=== PATIENT | female | born 1975 | race Caucasian/White ===

== ENCOUNTER 2022-05-31 02:48 | Inpatient (IN) | payer MEDICAID, SELFPAY ==
[2022-05-31 02:48] VITALS: BP 118/81; PULSE 73; RESP 16; TEMP 36.8; O2SAT 99
--- NOTE | 2022-05-31 04:11 | PC.NURSE ---
Pt requested a room change. Pt came to the desk and requested that this automobile service writer examine a face that showed up in my mirror. The mirror was checked and there is a facial outline scratched into the glass. I can't stay in here with a graven image, lisa verde lutheran the LORD thy God alone. Pt was moved from. 128-1 to 126. She is awake, alert, religiously preoccupied.
[2022-05-31 06:00] VITALS: RESP 16
--- NOTE | 2022-05-31 09:33 | PC.NURSE ---
IN ROOM OBSERVED STARRING OUT OF WINDOW FOR EXTENDED LENGTH OF TIME. AROUSES TO VOICE. PT SPOKE WITH THIS NURSE AT LENGTH ABOUT MU-ISM IDEATION. PT STATES SHE CAN NOT TELL ME EVERYTHING BECAUSE, YOU DON'T HAVE THE SONIA. PT STATES GOD TOLD HER SHE IS FROM [place] THE B[place] AND GOD HAS TAKEN HER BACK TO THE OTHER NATIONS TO BE PUNISHED. SHE DOES DENIES SI/HI AND AVH AT THIS TIME, BUT WILL PAUSE STATING SHE IS LISTENING TO GOD, BUT SHE HAS TO WAIT TO RESPOND BECAUSE SHE DOES NOT KNOW IF SHE IS ALLOWED TO TELL YOU EVERYTHING. NOTIFIED PT THAT THIS RN WOULD GET AN ORDER FOR A DIETARY CONSULT DUE TO HER NOT BEING ABLE TO EAT CERTAIN FOODS DUE TO HER RELGIOUS BELIEF.
--- NOTE | 2022-05-31 10:47 | W.PM.NPUH&PS ---
Providers/Chief Complaint Admitting Physician: Rafael Arriaga MD Chief Complaint: SI HPI NPU History of Present Illness Christine Hurst is a 46 year old female who presented to an outside hospital, which reported that she was picked up by the [facility] patrol who dropped her off in a [employer] in [place], [place]. She walked to an auto zone and reportedly climbed one mountain then another mountain. She had seen a [employer] and went there to get water where she noticed her urine was dark. At the top of the second mountain, she met a man and asked him to call 911 because she was dehydrated. She reports the spirit leads her in the direction she needs to go. She believes she is going through the wrath of God and stated she has left her old life behind because it ?has perished?. She said things like she drank a cup of wrath to kill her out, that her father was a silvina and she was being judged because of him and that her was not holy. She stated that her family are her enemies and she does not associate with them because they are only holy on holidays and she could not bring them to her because she has . They evaluated her and put her on a 96 hour hold and she was transferred to [facility] and admitted to the neuropsychiatric unit for definitive treatment of those issues. She presents today reporting she is not currently on any medications. She had presented to the outside hospital where she was severely dehydrated and was being admitted for observation but they later came to get her belongs at which point she found out she was in a gown that indicated she was a harm to herself or others. She reports she did not understand why she had been put into the gown and endorsed everything was ?in God?s testimony? in regards to questions of how she presented. She reports that ?god called the old person that she was? in reference to herself in third person and when asked why she was referring to herself in third person, she stated ?we have to stay in god?s testimony?. She endorses god is coming to her now and she has to wait for him to give the words to this policy writer sales. She has been psychiatrically hospitalized once previously a year ago in [place] and was told by the police magistrate then it was due to her financial issues. She has never had outpatient services and endorsed once again that her journey has been prophesized in the bible. She had reports that prior to being taken the outside hospital she had expressed wanting to go to a [facility]ikh hospital as she was a part of that jehovah's witness group. She reported that she has not been on medications in this lifetime but also was endorsing that the wrath of god can give someone another lifetime to live. She denies tobacco, alcohol, marijuana or any other illicit drug use. She has never had drug and alcohol treatment or drug and alcohol charges. She reports she has been experiencing heightened spirituality for 8 to 9 years at this point and has been speaking with god directly and endorses while she is waiting for him to speak with her, she is battling Minerva who talks to her as well which is why she pauses throughout the interview. She endorses feeling pressured into the secular world. She reports that due to her life perishing in ath she does not have her history anymore and elaborated that her life is like the second book of [employer] and that ?her friends and family were against her as she was against god?. She reports she is being lead out of [facility] to the [email or web address] and that no one know her besides god. Psychiatric History: As above. Substance Abuse History: As above. Family History: She refused to answer questions that relate to her family or her personal history prior to being called by god as she endorses her old life is gone. Developmental History: She refused to answer questions that relate to her family or her personal history prior to being called by god as she endorses her old life is gone. Psychosocial History: She refused to answer questions that relate to her family or her personal history prior to being called by god as she endorses her old life is gone. She did report having been previously. Legal History: She refused to answer questions that relate to her family or her personal history prior to being called by god as she endorses her old life is gone. Medical History: She is allergic to penicillin and possibly other medications she could not recall. Meds NPU Home Medications Medication Instructions Recorded Confirmed Last Taken Type No Known Home Medications 05/31/22 05/31/22 Unknown History Allergies Allergy/AdvReac Type Severity Reaction Status Date / Time doxycycline Allergy Unknown Verified 05/31/22 02:53 erythromycin base Allergy Unknown Verified 05/31/22 02:53 Penicillins Allergy ALGY-Anaphy Verified 05/31/22 02:53 laxis sulfamethoxazole Allergy Unknown Verified 05/31/22 02:53 [From Bactrim] trimethoprim [From Bactrim] Allergy Unknown Verified 05/31/22 02:53 Mental Status Exam MSE Comments: This is a slender white female looking older than her stated age in [facility] scrubs with adequate grooming and eye contact. No abnormal movements except for mild psychomotor retardation plus times she was looking to the left or right clearly attending to internal stimuli. Mostly cooperative with exam in mild distress. Speech was slightly decreased rate and volume with frequent pauses before answers. Mood described as blessed, affect is restricted and slightly agitated. Thought process, somewhat organized. Thought content: patient denies suicidal or homicidal ideation, no delusions reported but clear hyper jehovah's witness delusions noted, and she at times was clearly speaking and responding to people who were not there and internal stimuli. Attention and concentration are intact and memory appeared unreliable though none were formally tested. She is alert and oriented three times. Insight and judgment are impaired. Impulse control is limited. Vitals/I&O/Wt Last Vital Signs Temp 98.3 F 05/31/22 02:48 Pulse 73 05/31/22 02:48 Resp 16 05/31/22 06:00 BP 118/81 05/31/22 02:48 Pulse Ox 99 05/31/22 02:48 O2 Del Method 05/31/22 02:49 Weight last 48 hrs Weight 54.658 kg A&P Assessment and plan (1) Psychosis: Status: Acute Plan This is a 44 year old white woman with active hyper jehovah's witness delusions who presents on a 96 hour hold after walking to the point of severe dehydration endorsing she has been called by god and that her old life is because she has chosen to follow god and reporting delusions for the past 8 to 9 years. 1. We will get collateral information including possibly patient?s family members. 2. Encourage individual, group and milieu therapy 3. Continue q-15 minute check for safety 4. Consider 96 hour hold. Involuntary Hold Information 96 Hour Hold: 96 Hour Involuntary Admission: Yes 96 Hour Hold Ending Date: 06/06/22 96 Hour Hold Ending Time: 02:25 Attestations NPU Medical Necessity Statement*: Inpatient hospitalization is medically necessary and the clinically appropriate intervention at this time. We will monitor medications and make changes as indicated. Patient will be in the hospital for over two midnights. Likely length of stay is three to five days. Coding Level of Care Code Acute Manager People for Justen Reyes Diagnoses Psychosis F29
[2022-05-31 14:00] VITALS: BP 113/78; PULSE 99; RESP 18; TEMP 36.8; O2SAT 98
[2022-05-31] MEDS: efferdent effervescent 1 EACH DENTAL (16:39)
[2022-05-31] MEDS: fixodent 39 gm Tube 1 APPLIC DENTAL (16:39)
[2022-05-31 20:37] VITALS: BP 106/73; PULSE 66; RESP 18; TEMP 36.8; O2SAT 100
--- NOTE | 2022-05-31 23:03 | NUR.SHIFT ---
2000-PT PRESENTS CALM AND COOPERATIVE. WHEN CALLED GORDO, PT STATED, HER LIFE WAS SEIZED AWAY. SHE'S NOT HERE ANYMORE. WRATH OF GOD KILLED HER. PT REPORTS HEARING BOTH SATAN AND GOD USE HER IN THEIR HOLY WAR PT REPORTS, I AM PART OF GOD'S TESTIMONY PT REPORTS I AM PART OF THE HOLY WAR AND RIGHT NOW GOD IS PUNISHING ME, BUT I WILL AGAIN BE IN HIS FAVOR. PT DENIES SI/HI PT REPORTS AH, BUT NOT VH BUT IS OBVIOUSLY RESPONDING TO INTERNAL STIMULI. PT REPORTS, GOD WILL NOT LIKE IT IF I TAKE MEDICATION BECAUSE IF HE WANTS ME HEALED IN ANY WAY, HE WILL HEAL ME. PT DID EAT A SNACK AND DRANK SOME FLUIDS. 0000- PT SITTING IN BED WITH HAIR HANGING OVER FACE STARING AT THE AIR NEXT TO HER IF WATCHING SOMEONE.
[2022-06-01 05:55] VITALS: BP 96/66; PULSE 80; RESP 16; TEMP 36.6; O2SAT 98
--- NOTE | 2022-06-01 10:34 | PC.NURSE ---
PT IN ROOM, AROUSES TO VOICE. CONTINUES TO BE FIXATED ON LABELS ON DRINKS AND FOOD, STATING THEY ARE IDOLS AND SHE CAN NOT CONGREGATION OTHER IDOLS. PT REQUEST LABELS TO BE REMOVED THEN SHE WILL EAT OR DRINK. APPEARS TO BE RESPONDING TO INTERNAL AND EXTERNAL STIMULI. PT WILL PAUSE LOOK TO THE SIDE AND STATE SHE HAS RECEIVED HER ANSWER FROM EITHER GOD OR SATAN . PT DENIES SI/HI AND AVH AT THIS TIME. DENIES PAIN. PT WILL STATE SHE IS UNDER GODS WRATH AND GORDO IS ACTUALLY . PT SPEAKS ABOUT HERSELF IN THE 3RD PERSON DURING CONVERSATIONS. ALL QUESTIONS ANSWERED AND SUPPORT VOICED,.
[2022-06-01 14:00] VITALS: BP 103/71; PULSE 71; TEMP 36.8; O2SAT 98
--- NOTE | 2022-06-01 16:14 | PC.NURSE ---
NEW ORDERS PT C/O SORE THROAT. NEW ORDERS RECEIVED FOR CHLORASEPTIC SPRAY 3 SPRAYS Q 2 HOURS PRN ORDERS PLACED. NOTIFIED PT. EDUCATION COMPLETED. VERBALIZED UNDERSTANDING.
--- NOTE | 2022-06-01 16:47 | P.NPUPN_ITS ---
Subjective NPU Subjective: Patient presents today unchanged. Still with Palmer intrusive hyperreligious focus. Anything she is questioned about that there is a lack of clarity she says to ask God. She was frustrated with this job specification writer's concern for her mental health and so she said that she wanted a different doctor. Pausing to listen to God's position she suggested to God told her to be cautious because she sees a demon around this job specification writer. She continue to query about ways to dismiss this Dr. Reporting that God always provides a way. Mental Status Exam MSE Comments: This is a slender white female looking older than her stated age in [facility] scrubs with adequate grooming and eye contact. No abnormal movements except for mild psychomotor retardation plus times she was looking to the left or right clearly attending to internal stimuli. Mostly cooperative with exam in mild distress. Speech was slightly decreased rate and volume with frequent pauses before answers. Mood described as blessed, affect is restricted and slightly agitated. Thought process, somewhat organized. Thought content: patient denies suicidal or homicidal ideation, no delusions reported but clear hyper episcopalian delusions noted, and she at times was clearly speaking and responding to people who were not there and internal stimuli. Attention and concentration are intact and memory appeared unreliable though none were formally tested. She is alert and oriented three times. Insight and judgment are impaired. Impulse control is limited. Vitals/I&O/Wt Last Vital Signs Temp 97.6 F 06/01/22 19:58 Pulse 92 06/01/22 19:58 Resp 16 06/01/22 19:58 BP 100/66 06/01/22 19:58 Pulse Ox 97 06/01/22 19:58 O2 Del Method 06/01/22 14:00 A&P Assessment and plan (1) Psychosis: Status: Acute Plan This is a 44 year old white woman with active hyper episcopalian delusions who presents on a 96 hour hold after walking to the point of severe dehydration endorsing she has been called by god and that her old life is because she has chosen to follow god and reporting delusions for the past 8 to 9 years. 1. We will get collateral information including possibly patient?s family members. 2. Encourage individual, group and milieu therapy 3. Continue q-15 minute check for safety 4. Patient on 96-hour hold will plan on 21-day hold on Saturday. Involuntary Hold Information 96 Hour Hold: 96 Hour Involuntary Admission: Yes 96 Hour Hold Ending Date: 06/06/22 96 Hour Hold Ending Time: 02:25 Attestations NPU Medical Necessity Statement*: Inpatient hospitalization is medically necessary and the clinically appropriate intervention at this time. We will monitor medications and make changes as indicated. Likely length of stay is 7-10 days. We will initiate 21-day hold on Saturday. Coding Level of Care Code Acute [place] Operator for Justen Reyes Diagnoses Psychosis F29
[2022-06-01 19:58] VITALS: BP 100/66; PULSE 92; RESP 16; TEMP 36.4; O2SAT 97
[2022-06-02 06:00] VITALS: BP 98/61; PULSE 80; RESP 16; TEMP 36.5; O2SAT 96
--- NOTE | 2022-06-02 11:03 | PC.NURSE ---
PT IS SELF ISOLATING TO ROOM, PT STATES TODAY IS HER SABBATH AND STATES I DONT WANT CARES OR TO SPEAK TO ANYONE , PT IS CALM, PT ALSO IS FASTING AND REFUSING FOOD. PT REFUSES TO TALK AND IS SITTING QUIETLY IN ROOM
--- NOTE | 2022-06-02 13:48 | W.PM.NPUPNS ---
Subjective NPU Subjective: Patient presents today continuing to be overly religiously preoccupied. She reported that she was not going to engage in any treatment today because of the . 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 We then discussed the 21-day hold process and the fact that the treatment team strongly believes that a mood stabilizer/antipsychotic is going to be necessary to help her condition and that she will have an opportunity early next week to talk to a document restorer about her position that she does not need treatment. Mental Status Exam MSE Comments: This is a slender white female looking older than her stated age in [facility] scrubs with adequate grooming and eye contact. No abnormal movements except for mild psychomotor retardation plus times she was looking to the left or right clearly attending to internal stimuli. Mostly cooperative with exam in mild distress. Speech was slightly decreased rate and volume with frequent pauses before answers. Mood described as not participating because of the Sabba, affect is restricted and slightly agitated. Thought process, somewhat organized. Thought content: patient denies suicidal or homicidal ideation, no delusions reported but clear hyper methodist delusions noted, and she at times was clearly speaking and responding to people who were not there and internal stimuli. Attention and concentration are intact and memory appeared unreliable though none were formally tested. She is alert and oriented to person and place. Insight and judgment are impaired. Impulse control is limited. Vitals/I&O/Wt Last Vital Signs Temp 97.7 F 06/02/22 06:00 Pulse 80 06/02/22 06:00 Resp 16 06/02/22 06:00 BP 98/61 06/02/22 06:00 Pulse Ox 96 06/02/22 06:00 O2 Del Method 06/01/22 14:00 A&P Assessment and plan (1) Psychosis: Status: Acute Plan This is a 44 year old white woman with active hyper methodist delusions who presents on a 96 hour hold after walking to the point of severe dehydration endorsing she has been called by god and that her old life is because she has chosen to follow god and reporting delusions for the past 8 to 9 years. 1. We will get collateral information including possibly patient?s family members. We will continue to offer antipsychotic. 2. Encourage individual, group and milieu therapy 3. Continue q-15 minute check for safety 4. Patient on 96-hour hold will plan on 21-day hold on Saturday. Involuntary Hold Information 96 Hour Hold: 96 Hour Involuntary Admission: Yes 96 Hour Hold Ending Date: 06/06/22 96 Hour Hold Ending Time: 02:25 Attestations NPU Medical Necessity Statement*: Inpatient hospitalization is medically necessary and the clinically appropriate intervention at this time. We will monitor medications and make changes as indicated. Likely length of stay is 7-10 days. We will initiate 21-day hold on Saturday. Coding Level of Care Code Acute Insurance Counselor for Justen Fwd Diagnoses Psychosis F29
[2022-06-02 15:14] VITALS: RESP 16
--- NOTE | 2022-06-02 20:24 | PC.NURSE ---
2000 Refused VS, I am on my saboth, the doctor knows.
--- NOTE | 2022-06-02 21:01 | PC.NURSE ---
PT ISOLATES TO ROOM. REQUEST THIS NURSE COME BACK AND DO MY ASSESSMENT LATER, PREFERABLY AFTER MIDNIGHT. CONTINUES TO BE PREOCCUPIED WITH MANDAEISM IDEATION. VERY EVASIVE, BLOCKING WHEN ASKED QUESTIONS. DENIES SI/HI AND AVH. SUPPORT VOICED.
[2022-06-02 22:00] VITALS: BP 98/61; PULSE 80; RESP 16; TEMP 36.5; O2SAT 96
[2022-06-03 05:55] VITALS: BP 87/59; PULSE 120; RESP 16; TEMP 36.6; O2SAT 96
[2022-06-03 09:59] LABS: Add Urine Microscopic? NO; Charge for UA Resulting for Rev
[2022-06-03 10:08] LABS: Urine Appearance Clear (CLEAR); Urine Color Yellow (Yellow); pH Urine 6 (5-7)
[2022-06-03 10:10] LABS: Bilirubin Urine Neg (Negative); Blood Urine Neg (Negative); Glucose Urine UA Norm (Normal); Ketones Urine Negative (Negative); Leukocyte Esterase Urine Negative (Negative); Nitrate Urine Negative (Negative); Protein Urine Neg (Negative); Urobilinogen Urine 1 mg/dL (Negative)
[2022-06-03 14:00] VITALS: BP 97/67; PULSE 107; RESP 16; TEMP 36.6; O2SAT 98
[2022-06-03] MEDS: efferdent effervescent 1 EACH DENTAL (18:06)
--- NOTE | 2022-06-03 19:21 | P.NPUPN_ITS ---
Subjective NPU Subjective: Patient presents today reporting that she is still trying to understand how she can get a new doctor. We discussed the fact that her most potent means to protect her similarities is when she has a court date but that while she is on a 96-hour hold she is court ordered to be evaluated. She co ntinued to be religiously preoccupied as she described that she received life back from when she perished. And reporting that she was feeling better because she received light from God. Mental Status Exam MSE Comments: This is a slender white female looking older than her stated age in [facility] scrubs with adequate grooming and eye contact. No abnormal movements except for mild psychomotor retardation plus times she was looking to the left or right clearly attending to internal stimuli. Mostly cooperative with exam in mild to moderate distress. Speech was slightly decreased rate and volume with frequent pauses before answers. Mood described as I want a new doctor, affect is restricted and slightly agitated. Thought process, somewhat organized. Thought content: patient denies suicidal or homicidal ideation, no delusions reported but clear hyper oriental orthodox delusions noted, and she at times was clearly speaking and responding to people who were not there and internal stimuli. Attention and concentration are intact and memory appeared unreliable though none were formally tested. She is alert and oriented to person and place. Insight and judgment are impaired. Impulse control is limited. Vitals/I&O/Wt Last Vital Signs Temp 98.4 F 06/03/22 20:14 Pulse 83 06/03/22 20:14 Resp 17 06/03/22 20:14 BP 91/60 06/03/22 20:14 Pulse Ox 93 06/03/22 20:14 O2 Del Method 06/03/22 14:00 Weight last 48 hrs Weight 54.658 kg A&P Assessment and plan (1) Psychosis: Status: Acute Plan This is a 44 year old white woman with active hyper oriental orthodox delusions who presents on a 96 hour hold after walking to the point of severe dehydration endorsing she has been called by god and that her old life is because she has chosen to follow god and reporting delusions for the past 8 to 9 years. 1. We will get collateral information including possibly patient?s family mem bers. We will continue to offer antipsychotic, but she refuses. 2. Encourage individual, group and milieu therapy 3. Continue q-15 minute check for safety 4. Patient on 96-hour hold will plan on 21-day hold on Saturday. Involuntary Hold Information 96 Hour Hold: 96 Hour Involuntary Admission: Yes 96 Hour Hold Ending Date: 06/06/22 96 Hour Hold Ending Time: 02:25 Attestations NPU Medical Necessity Statement*: Inpatient hospitalization is medically necessary and the clinically appropriate intervention at this time. We will monitor medic ations and make changes as indicated. Likely length of stay is 7-10 days. We will initiate 21-day hold on Saturday. Coding Level of Care Code Acute Disk Sander for Justen Fwd Diagnoses Psychosis F29
[2022-06-03 20:14] VITALS: BP 91/60; PULSE 83; RESP 17; TEMP 36.9; O2SAT 93
[2022-06-04 06:00] VITALS: BP 85/52; PULSE 98; RESP 16; TEMP 36.9; O2SAT 99
--- NOTE | 2022-06-04 07:02 | W.PM.NPUPNS ---
Subjective NPU Subjective: Patient presents today continuing to be hyperreligious per reports and per evaluation. She continues to be surprised by the prospect that we feel she needs medication and is not seeming to be excited about the idea of having a court date to complete her case. We continue to discuss 21-day hold process and that the forms are filed today so that we expect the court date in the next 48 hours or so. Mental Status Exam MSE Comments: This is a slender white female looking older than her stated age in [facility] scrubs with adequate grooming and eye contact. No abnormal movements except for mild psychomotor retardation plus times she was looking to the left or right clearly attending to internal stimuli. Mostly cooperative with exam in mild to moderate distress. Speech was slightly decreased rate and volume with frequent pauses before answers. Mood described as I am fine, affect is restricted and slightly agitated. Thought process, somewhat organized. Thought content: patient denies suicidal or homicidal ideation, no delusions reported but clear hyper caodaism delusions noted, and she at times was clearly speaking and responding to people who were not there and internal stimuli. Attention and concentration are intact and memory appeared unreliable though none were formally tested. She is alert and oriented to person and place. Insight and judgment are impaired. Impulse control is limited. Vitals/I&O/Wt Last Vital Signs Temp 98.4 F 06/04/22 06:00 Pulse 98 06/04/22 06:00 Resp 16 06/04/22 06:00 BP 85/52 06/04/22 06:00 Pulse Ox 99 06/04/22 06:00 O2 Del Method 06/04/22 06:00 Weight last 48 hrs Weight 54.658 kg A&P Assessment and plan (1) Psychosis: Status: Acute Plan This is a 44 year old white woman with active hyper caodaism delusions who presents on a 96 hour hold after walking to the point of severe dehydration endorsing she has been called by god and that her old life is because she has chosen to follow god and reporting delusions for the past 8 to 9 years. 1. We will get collateral information including possibly patient?s family members. We will continue to offer antipsychotic, but she refuses. 2. Encourage individual, group and milieu therapy 3. Continue q-15 minute check for safety 4. Patient on 96-hour hold will plan on 21-day hold on Saturday. Involuntary Hold Information 96 Hour Hold: 96 Hour Involuntary Admission: Yes 96 Hour Hold Ending Date: 06/06/22 96 Hour Hold Ending Time: 02:25 Attestations NPU Medical Necessity Statement*: Inpatient hospitalization is medically necessary and the clinically appropriate intervention at this time. We will monitor medications and make changes as indicated. Likely length of stay is 7-10 days. We will initiate 21-day hold on Saturday. Coding Level of Care Code Acute Vice President Of Communications for Justen Reyes Diagnoses Psychosis F29
[2022-06-04 14:00] VITALS: BP 88/60; PULSE 87; RESP 16; TEMP 36.8; O2SAT 98
[2022-06-04 19:10] VITALS: BP 104/70; PULSE 100; RESP 16; TEMP 36.9; O2SAT 98
[2022-06-05 06:00] VITALS: BP 95/58; PULSE 79; RESP 18; TEMP 36.6; O2SAT 98
--- NOTE | 2022-06-05 11:08 | P.NPUPN_ITS ---
Subjective NPU Subjective: Patient presented today reporting she is refusing/denying medical treatment/services today. Asked why she reports that God informed us of the reasoning for it was identified in the chart. She answered okay to a couple introductory questions but after that she just kept saying I refuse medical treatment. Mental Status Exam MSE Comments: This is a slender white female looking older than her stated age in [facility] scrubs with adequate grooming and eye contact. No abnormal movements except for mild psychomotor agitation. Uncooperative with exam in mild to moderate distress. Speech was slightly decreased rate and volume. Mood described as I deny medical treatment, affect is slightly agitated. Thought process, somewhat organized. Thought content: patient only responded that she denied medical treatment and that documented to us and did not answer questions about the or perceptual disturbances. There was no aggression outwardly or inwardly directed noted, there were no delusions reported but clear hyperreligious delusions existed. She did not report any auditory visual hallucinations and was not appearing to attend internal stimuli during our encounter. Attention and concentration are intact and memory appeared unreliable though none were formally tested. She is alert and oriented to person and place. Insight and judgment are impaired. Impulse control is limited. Vitals/I&O/Wt Last Vital Signs Temp 97.8 F 06/05/22 06:00 Pulse 79 06/05/22 06:00 Resp 18 06/05/22 06:00 BP 95/58 06/05/22 06:00 Pulse Ox 98 06/05/22 06:00 O2 Del Method 06/05/22 06:00 A&P Assessment and plan (1) Psychosis: Status: Acute Plan This is a 44 year old white woman with active hyper church delusions who presents on a 96 hour hold after walking to the point of severe dehydration endorsing she has been called by god and that her old life is because she has chosen to follow god and reporting delusions for the past 8 to 9 years. 1. We will get collateral information including possibly patient?s family members. We will continue to offer antipsychotic, but she refuses. 2. Encourage individual, group and milieu therapy 3. Continue q-15 minute check for safety 4. Patient on 96-hour. 21-day hold paperwork filed. Involuntary Hold Information 96 Hour Hold: 96 Hour Involuntary Admission: Yes 96 Hour Hold Ending Date: 06/06/22 96 Hour Hold Ending Time: 02:25 Attestations NPU Medical Necessity Statement*: Inpatient hospitalization is medically necessary and the clinically appropriate intervention at this time. We will monitor medications and make changes as indicated. Likely length of stay is 7-10 days. Coding Level of Care Code Acute Hydraulic Riveter for Justen Fwd Diagnoses Psychosis F29
[2022-06-05 13:39] VITALS: RESP 16
[2022-06-05 20:06] VITALS: RESP 16
[2022-06-06 06:00] VITALS: RESP 18
--- NOTE | 2022-06-06 06:45 | PC.NURSE ---
Patient continues to refuse anything to eat or drink. patient refusing to answer any medical question when asked if she has urinated anytime during the night. states that god has told her not to eat or drink.
--- NOTE | 2022-06-06 06:46 | PC.NURSE ---
Patient refused all nursing care.
--- NOTE | 2022-06-06 09:15 | PC.NURSE ---
PT IN ROOM, ISOLATING AND WITHDRAWING FROM PEERS. WHEN THIS RN INTRODUCED SELF PT CONTINUELY REPEATED I REFUSE MEDICAL I REFUSE MEDICAL I REFUSE MEDICAL. INFORMED PT I WAS ONLY INTRODUCING MYSELF. PT DID DENY SI/HI AND AVH AT THIS TIME, THEN STARTED SPEAKING ABOUT GOD, RATH AND SATAN. PT WAS RESPONDING TO INTERNAL STIMULI, LOOKING TO THE RIGHT OF HER SAYING I REBUKE THAT. THEN STARTED TALKING TO THIS NURSE, STATING GOD GAVE ME PERMISSION TO TALK TO YOU AND TELL YOU HIS TESTIMONY, OTHERWISE I WOULD NOT BE ABLE TO SPEAK TO YOU, LIKE THE DR. I CAN'T TALK TO HIM BECAUSE HE IS A DOG AND DOGS ARE NOT ALLOWED IN THE KINGDOM OF GOD. PT WENT ON RESPONDING TO INTERNAL AND EXTERNAL STIMULI DURING THE CONVERSATION. CONTINUED WITH HER FAITH IDEATION. ALL QUESTIONS WERE ANSWERED AND SUPPORT VOICED.
[2022-06-06 14:00] VITALS: RESP 16
--- NOTE | 2022-06-06 16:05 | W.PM.NPUPNS ---
Subjective NPU Subjective: Patient presents today continuing to struggle with hyperreligious thinking. We discussed the fact that her hearing was tomorrow to which she had no real response. She continues to report that she does not want to have any medical services and even talked about not eating and protest. Encouraged to continue to take care of her needs and to use the legal route of going to court and explained to the shrinking machine operator why she believes she should not be here on a hold. We continue to offer her medications which she refused and talked about her being chosen and not having any problems. Mental Status Exam MSE Comments: This is a slender white female looking older than her stated age in [facility] scrubs with adequate grooming and eye contact. No abnormal movements except for mild psychomotor agitation. Uncooperative with exam in mild to moderate distress. Speech was slightly decreased rate and volume. Mood described as I deny medical treatment, affect is slightly agitated. Thought process, somewhat organized. Thought content: patient only responded that she denied medical treatment and that is documented to you by God and did not answer questions about the lethality or perceptual disturbances. There was no aggression outwardly or inwardly directed noted, there were no delusions reported but clear hyperreligious delusions existed. She did not report any auditory or visual hallucinations and was not appearing to attend internal stimuli during our encounter. Attention and concentration are intact and memory appeared unreliable though none were formally tested. She is alert and oriented to person and place. Insight and judgment are impaired. Impulse control is limited. Vitals/I&O/Wt Last Vital Signs Temp 97.8 F 06/05/22 06:00 Pulse 79 06/05/22 06:00 Resp 16 06/06/22 14:00 BP 95/58 06/05/22 06:00 Pulse Ox 98 06/05/22 06:00 O2 Del Method 06/05/22 06:00 A&P Assessment and plan (1) Psychosis: Status: Acute Plan This is a 44 year old white woman with active hyper confucianism delusions who presents on a 96 hour hold after walking to the point of severe dehydration endorsing she has been called by god and that her old life is because she has chosen to follow god and reporting delusions for the past 8 to 9 years. 1. We will get collateral information including possibly patient?s family members. We will continue to offer antipsychotic, but she refuses. 2. Encourage individual, group and milieu therapy 3. Continue q-15 minute check for safety 4. Patient on 96-hour. 21-day hold hearing tomorrow. Involuntary Hold Information 96 Hour Hold: 96 Hour Involuntary Admission: Yes 96 Hour Hold Ending Date: 06/06/22 96 Hour Hold Ending Time: 02:25 Attestations NPU Medical Necessity Statement*: Inpatient hospitalization is medically necessary and the clinically appropriate intervention at this time. We will monitor medications and make changes as indicated. Likely length of stay is 7-10 days. Could be longer with 21-day hold hearing tomorrow. Coding Level of Care Code Acute Serologist for Loryg Fwd Diagnoses Psychosis F29
--- NOTE | 2022-06-06 17:34 | PC.NURSE ---
PT HAS REFUSED TO EAT AND DRINK ALL SHIFT. AT LUNCH PT THREW TRAY ON THE FLOOR. PT STATES THE SPIRIT SAID SHE COULD EAT, AND PT WAS EXCITED TO EAT. ONCE PT WENT INTO ROOM TO EAT, THE SPIRIT THEN TOLD HER SHE COULD NOT EAT. PT THEN GOT UPSET BECAUSE IT WAS HER FAVORITE MEAL AND THE SPIRIT SAID I COULD'NT EAT IT ANYMORE. PT THEN STATED I WISH I COULD EAT BUT THE SPIRIT JUST WON'T LET ME. WHEN DINNER CAME MULTIPLE STAFF WENT IN TO ENCOURAGE PT TO EAT, BUT PT CONTINUES TO DECLINE FOOD OR DRINK AT THIS TIME. [address] DATE IS SET FOR TOMORROW.
[2022-06-07 05:46] VITALS: RESP 16
--- NOTE | 2022-06-07 08:56 | PC.NURSE ---
PRESENTS IN ROOM SITTING IN FLOOR, ISOLATES FROM STAFF AND PEERS. CONTINUES TO DENY MEDICAL PT DID SPEAK TO THIS RN IN DEPTH ABOUT HER RELIGOUS IDEATION IN DEPTH, STATING GOD WILL LET ME TALK TO YOU BUT I CAN NOT SPEAK TO THE OTHER PEOPLE HERE BECAUSE THEY ARE SOURCERERS AND FROM THE OCCULT. PT DID DENY SI/HI AND AVH AT THIS TIME. PT WAS HYPER FOCUSED ON DR. LIZARRAGA AND THAT HE IS SATAN AND I CAN SEE THE DEVIL IN HIM, HE IS UNDER WRATH AND HE GOING TO GET WHAT HE GETS FOR IMPRISONING ME. PT CONTINUED TO SPEAK ABOUT SIKH AND THE BIBLE, THAT SHE IS HOLY AND HAS THE HOLY SPIRIT. ALL QUESTIONS ANSWERED AND SUPPORT VOICED
--- NOTE | 2022-06-07 12:51 | PC.NURSE ---
OFF UNIT FOR [address]
[2022-06-07 14:00] VITALS: RESP 16
--- NOTE | 2022-06-07 18:03 | P.NPUPN_ITS ---
Subjective NPU Subjective: Patient presents today reporting that she does not want to be treated by this real estate underwriter. Make sense as during her court proceedings she asked the weigher production why he was returning her to a doctor who read the hillary of the beast. We discussed the fact that now that she is on a hold that we will initiate Invega 6 mg p.o. every morning and there will be Geodon IM for p.o. refusal. She endorses a plan to appeal the courts findings. Explained that we want this to be as reasonable as possible but her level of psychosis is not healthy for her brain so we would like to help her resolve that but obviously she does not feel she has any psychiatric problems. Mental Status Exam MSE Comments: This is a slender white female looking older than her stated age in [facility] scrubs with adequate grooming and eye contact. No abnormal movements except for mild psychomotor agitation. Uncooperative with exam in mild to moderate distress. Speech was slightly decreased rate and volume. Mood described as I can refuse treatment, affect is slightly agitated. Thought process, somewhat organized. Thought content: patient only responded that God told me I can refuse treatment, but not to fight you. And did not answer questions about the lethality or perceptual disturbances. There was no aggression outwardly or inwardly directed noted, there were no delusions reported but clear hyperreligious delusions existed. She did not report any auditory or visual hallucinations and was not appearing to attend internal stimuli during our encounter. Attention and concentration are intact and memory appeared unreliable though none were formally tested. She is alert and oriented to person and place. Insight and judgment are impaired. Impulse control is limited. Vitals/I&O/Wt Last Vital Signs Temp 97.8 F 06/05/22 06:00 Pulse 79 06/05/22 06:00 Resp 16 06/07/22 19:44 BP 95/58 06/05/22 06:00 Pulse Ox 98 06/05/22 06:00 O2 Del Method 06/05/22 06:00 A&P Assessment and plan (1) Psychosis: Status: Acute Plan This is a 44 year old white woman with active hyper restoration delusions who presents on a 96 hour hold after walking to the point of severe dehydration endorsing she has been called by god and that her old life is because she has chosen to follow god and reporting delusions for the past 8 to 9 years. 1. We will get collateral information including possibly patient?s family members. Initiated Invega 6 mg p.o. every morning. Currently Geodon 20 mg IM for p.o. refusal. Hope is to get tolerance for Invega establish so that we could transfer her over to Invega Sustenna. 2. Encourage individual, group and milieu therapy 3. Continue q-15 minute check for safety 4. Patient placed on 21-day hold. Involuntary Hold Information 96 Hour Hold: 96 Hour Involuntary Admission: Yes 96 Hour Hold Ending Date: 06/06/22 96 Hour Hold Ending Time: 02:25 Attestations NPU Medical Necessity Statement*: Inpatient hospitalization is medically necessary and the clinically appropriate intervention at this time. We will monitor medications and make changes as indicated. Likely length of stay is 10 to 14 days. She is on the 21-day hold. Coding Level of Care Code Acute Basket Hand Weaver for Justen Reyes Diagnoses Psychosis F29
[2022-06-07] MEDS: ziprasidone 20 mg/mL SDV IM (18:04)
--- NOTE | 2022-06-07 18:04 | PC.NURSE ---
refused scheduled Invega, PRN Geodon 20 mg given IM in right deltoid per physician request....security called to unit, zinc furnace charger and this med nurse and 2 CNAs in room to assist with med administration. pt took med without incidence, but did say I am refusing this shot! once shot given, staff leaving the room & pt stated I forgive you all
[2022-06-07 19:44] VITALS: RESP 16
--- NOTE | 2022-06-08 09:14 | PC.NURSE ---
IN ROOM PACING AND PRAYING. DENIES PAIN. DENIES SI/HI AND AVH AT THIS TIME. PT CONTINUES TO RESPOND TO INTERNAL AND EXTERNAL STIMULI STATING GOD SPOKE TO HER AND GOD IS COMING FOR YOU SOON, I JUST HOPE YOU DON'T . PT ALSO LOOKS TO THE RIGHT AND RESPONDS TO THE HOLY SPIRIT VERBALLY. ENCOURAGED PT TO TAKE AM MEDS. PT STATES NO I MUST REFUSE THE SONIA OF THE BEAST. EDUCATED PT STAFF WOULD HAVE TO GIVE HER AN INJECTION IF SHE WILL NOT TAKE THE MEDICATION. PT STATES THAT'S FINE, BUT I STILL REFUSE IT AND GOD WILL ABSORB IT FOR ME. ALL QUESTIONS ANSWERED AND SUPPORT VOICED. PT DOES CONTINUE TO DECLINE PHYSICAL ASSESSMENT.
--- NOTE | 2022-06-08 10:36 | PC.NURSE ---
Pt refused 6mg po invega, pt stated that she will not partake in the hillary of the beast. Nurse encouraged pt to take the oral medication, pt still denied.
--- NOTE | 2022-06-08 11:14 | W.PM.NPUPNS ---
Subjective NPU Subjective: Patient presents today continuing to struggle with the situation. She continues to report that this typewriter ribbon winder has the hillary of the beast and continues to refuse medication but is taking the injection without any restraints necessary she continues to deny need for medication or need for any assistance. Staff continue to report regular psychotic comments. But she is refusing conversation continuing to state that she denies care or refuses care. Mental Status Exam MSE Comments: This is a slender white female looking older than her stated age in [facility] scrubs with adequate grooming and eye contact. No abnormal movements except for mild psychomotor agitation. Uncooperative with exam in mild to moderate distress. Speech was normal rate and decreased volume. Mood described as I denied treatment/therapeutic, affect is slightly agitated. Thought process, somewhat organized. Thought content: patient only responded that I denied treatment and refused treatment and did not answer questions about the lethality or perceptual disturbances. There was no aggression outwardly or inwardly directed noted, there were no delusions reported but clear hyperreligious delusions existed. She did not report any auditory or visual hallucinations and was not appearing to attend internal stimuli during our encounter. Attention and concentration are intact and memory appeared unreliable though none were formally tested. She is alert and oriented to person and place. Insight and judgment are impaired. Impulse control is limited. Vitals/I&O/Wt Last Vital Signs Temp 97.8 F 06/05/22 06:00 Pulse 79 06/05/22 06:00 Resp 16 06/07/22 19:44 BP 95/58 06/05/22 06:00 Pulse Ox 98 06/05/22 06:00 O2 Del Method 06/05/22 06:00 A&P Assessment and plan (1) Psychosis: Status: Acute Plan This is a 44 year old white woman with active hyper sikhism delusions who presents on a 96 hour hold after walking to the point of severe dehydration endorsing she has been called by god and that her old life is because she has chosen to follow god and reporting delusions for the past 8 to 9 years. 1. We will get collateral information including possibly patient?s family members. Initiated Invega 6 mg p.o. every morning. Currently Geodon 20 mg IM for p.o. refusal. Hope is to get tolerance for Invega establish so that we could transfer her over to Invega Sustenna. She is not taking Invega at this time and has received 2 shots of Geodon. 2. Encourage individual, group and milieu therapy 3. Continue q-15 minute check for safety 4. Patient placed on 21-day hold. Involuntary Hold Information 96 Hour Hold: 96 Hour Involuntary Admission: Yes 96 Hour Hold Ending Date: 06/06/22 96 Hour Hold Ending Time: 02:25 Attestations NPU Medical Necessity Statement*: Inpatient hospitalization is medically necessary and the clinically appropriate intervention at this time. We will monitor medications and make changes as indicated. Likely length of stay is 10 to 14 days. She is on the 21-day hold. Coding Level of Care Code Acute Supervisor Beater Room for Justen Fwd Diagnoses Psychosis F29
[2022-06-08] MEDS: ziprasidone 20 mg/mL SDV IM (11:17)
[2022-06-08 14:00] VITALS: BP 118/72; PULSE 76; RESP 18; TEMP 36.6; O2SAT 94
[2022-06-08] MEDS: efferdent effervescent 1 EACH DENTAL (20:16)
[2022-06-08 22:00] VITALS: RESP 16
--- NOTE | 2022-06-09 00:18 | PC.NURSE ---
PT CAME TO NURSES STATION REQUESTING NO ONE BOTHER HER TOMORROW IT IS THE SABBOTH. PT DOES NOT WANT TO BE DISTURBED
--- NOTE | 2022-06-09 06:32 | PC.NURSE ---
pt stated that she does not need vitals done today because it is against her roman catholic.
--- NOTE | 2022-06-09 11:35 | PC.NURSE ---
Pt refused 6mg PO Invega, administered 20mg IM Geodon in Right Deltoid.
[2022-06-09] MEDS: ziprasidone 20 mg/mL SDV IM (11:36)
[2022-06-09 14:00] VITALS: RESP 17
--- NOTE | 2022-06-09 15:12 | P.NPUPN_ITS ---
Subjective NPU Subjective: Patient resents today reporting that she is denying medical treatment. She continues to be quite paranoid and is expressing things like without reporting her and that she does not need to be here. We discussed the fact that she has received her third injection since the court date and is see breanna to not respond at all to those that is so discussed the fact that we would change release manager to Haldol and add a increased dose of Haldol at night each with a 5 mg Haldol injection with Benadryl for refused medication. She continues to deny this teletypewriter operator Mental Status Exam MSE Comments: This is a slender white female looking older than her stated age in [facility] scrubs with adequate grooming and eye contact. No abnormal movements except for mild psychomotor agitation, but she was found praying pe acefully in her room. Uncooperative with exam in mild to moderate distress. Speech was normal rate and decreased volume. Mood described as I denied treatment/medical, affect is slightly agitated. Thought process, somewhat organized. Thought content: patient only responded that I denied treatment and refused treatment and did not answer questions about the lethality or perceptual disturbances. There was no aggression outwardly or inwardly directed noted, there were no delusions reported but clear hyperreligious delusions existed. She did not report any auditory or visual hallucinations and was not appearing to attend internal stimuli during our encounter. Attention and concentration are intact and memory appeared unreliable though none were formally tested. She is alert and oriented to person and place. Insight and judgment are impaired. Impulse control is limited. Vitals/I&O/Wt Last Vital Signs Temp 97.8 F 06/08/22 14:00 Pulse 76 06/08/22 14:00 Resp 18 06/09/22 14:00 BP 118/72 06/08/22 14:00 Pulse Ox 94 06/08/22 14:00 O2 Del Method 06/05/22 06:00 A&P Assessment and plan (1) Psychosis: Status: Acute Plan This is a 44 year old white woman with active hyper evangelical delusions who presents on a 96 hour hold after walking to the point of severe dehydration endorsing she has been called by god and that her old life is because she has chosen to follow god and reporting delusions for the past 8 to 9 years. 1. We will get collateral information including possibly patient?s family members. Initiated Invega 6 mg p.o. every morning. Was receiving Geodon 20 mg IM for p.o. refusal, but switching that to Haldol 5 mg IM with Benadryl 50 mg.. Hope is to get tolerance for Invega establish so that we could transfer her over to Invega Zara. We have added a 5 mg dose of Haldol at night with 5 mg of Haldol IM for p.o. refusal. 2. Encourage individual, group and milieu therapy 3. Continue q-15 minute check for safety 4. Patient placed on 21-day hold. Involuntary Hold Information 96 Hour Hold: 96 Hour Involuntary Admission: Yes 96 Hour Hold Ending Date: 06/06/22 96 Hour Hold Ending Time: 02:25 Attestations NPU Medical Necessity Statement*: Inpatient hospitalization is medically necessary and the clinically appropriate intervention at this time. We will monitor medications and make changes as indicated. Likely length of stay is 10 to 14 days. She is on the 21-day hold. Coding Level of Care Code Acute Filler Wiper for Justen Reyes Diagnoses Psychosis F29
--- NOTE | 2022-06-09 15:27 | PC.NURSE ---
REFUSED VITALS PATIENT REFUSED 1400 VITALS EXCEPT RESPIRATIONS. CHARGE NURSE NOTIFIED. WILL CONTINUE TO MONITOR.
[2022-06-09 20:20] VITALS: RESP 16
--- NOTE | 2022-06-10 07:51 | PC.NURSE ---
cooperative with shift assessment, pt stated yes, God is saying I can let you check me out this morning. denies SI/HI/AVH but calls them visions ....stated if she doesn't have a bowel movement after breakfast she might need something...stated last bowel movement was 06/09/22 but reports it as small ....requesting prune juice. staff provided
--- NOTE | 2022-06-10 09:52 | PC.NURSE ---
REFUSED SCHEDULED INVEGA, PT TOOK PILL AND THREW IT IN THE SINK...TOOK PRN HALDOL 5 MG INJECTION IN RIGHT DELTOID PER PHYSICIAN ORDER IF PT REFUSED SCHEDULED MED (INVEGA) WHICH SHE DID...TOOK MED WITHOUT INCIDENCE. WILL CONT TO MONITOR PATIENT FOR ANY CHANGES
[2022-06-10] MEDS: haloperidol inj 5 mg/mL INJ 1 mL IM ×2 (09:53→20:32)
--- NOTE | 2022-06-10 10:26 | W.PM.NPUPNS ---
Subjective NPU Subjective: Patient presents today reporting that she refuses treatment. She is getting further entrenched in that position. We discussed the fact that we were not seeing any improvement from the Geodon and so we switched to Haldol. She is spending much of her time in her room and if you look in the room she often in a prayer position. She has not taken the medication once and has only had the injections for p.o. refusal. She reported that being here is against her gnosticist believes, that she is refusing all treatment which in her mind believes refusing conversation and answering questions, and she wanted to know that she was appealing her 21-day hold ruling. Mental Status Exam MSE Comments: This is a slender white female looking older than her stated age in [facility] scrubs with adequate grooming and eye contact. No abnormal movements except for mild psychomotor agitation, but she was found in the prayer position. Uncooperative with exam in mild to moderate distress. Speech was normal rate and decreased volume. Mood described as I denied treatment/medical, affect is slightly agitated. Thought process, somewhat organized. Thought content: patient only responded that I denied treatment and refused treatment and did not answer questions about the lethality or perceptual disturbances. There was no aggression outwardly or inwardly directed noted, there were no delusions reported but clear hyperreligious delusions existed. She did not report any auditory or visual hallucinations and was not appearing to attend internal stimuli during our encounter. Attention and concentration are intact and memory appeared unreliable though none were formally tested. She is alert and oriented to person and place. Insight and judgment are impaired. Impulse control is limited. Vitals/I&O/Wt Last Vital Signs Temp 97.8 F 06/08/22 14:00 Pulse 76 06/08/22 14:00 Resp 16 06/09/22 20:20 BP 118/72 06/08/22 14:00 Pulse Ox 94 06/08/22 14:00 O2 Del Method 06/05/22 06:00 A&P Assessment and plan (1) Psychosis: Status: Acute Plan This is a 44 year old white woman with active hyper gnosticist delusions who presents on a 96 hour hold after walking to the point of severe dehydration endorsing she has been called by god and that her old life is because she has chosen to follow god and reporting delusions for the past 8 to 9 years. 1. We will get collateral information including possibly patient?s family members. Initiated Invega 6 mg p.o. every morning. Was receiving Geodon 20 mg IM for p.o. refusal, but switching that to Haldol 5 mg IM with Benadryl 50 mg.. Hope is to get tolerance for Invega establish so that we could transfer her over to Invega Sustenna. We have added a 5 mg dose of Haldol at night with 5 mg of Haldol IM for p.o. refusal. 2. Encourage individual, group and milieu therapy 3. Continue q-15 minute check for safety 4. Patient placed on 21-day hold. Involuntary Hold Information 96 Hour Hold: 96 Hour Involuntary Admission: Yes 96 Hour Hold Ending Date: 06/06/22 96 Hour Hold Ending Time: 02:25 Attestations NPU Medical Necessity Statement*: Inpatient hospitalization is medically necessary and the clinically appropriate intervention at this time. We will monitor medications and make changes as indicated. Likely length of stay is 10 to 14 days. She is on the 21-day hold and may be here longer. Coding Level of Care Code Acute Horse Buyer for Justen Reyes Diagnoses Psychosis F29
[2022-06-11 06:00] VITALS: BP 100/74; PULSE 122; RESP 16; TEMP 36.6; O2SAT 98
[2022-06-11] MEDS: paliperidone ER 6 mg Tablet PO (08:54)
[2022-06-11] MEDS: diphenhydrAMINE 50 mg/mL SDV 1mL IM (08:55)
[2022-06-11] MEDS: haloperidol inj 5 mg/mL INJ 1 mL IM (08:55)
--- NOTE | 2022-06-11 08:57 | PC.NURSE ---
Addendum entered by Aaliyah King LPN 06/11/22 09:02: HALDOL INJ AND BENADRYL INJ WASTED. Original Note: DURING MORNING ASSESSMENT PT INITIALLY DENIED PO INVEGA, ORDER STATES IM HALDOL AND IM BENADRYL WERE OBTAINED. ONCE THIS NURSE AND CHARGE NURSE WENT TO PT ROOM THE PT DECIDED SHE WOULD TAKE THE INVEGO PO. PT TOOK INVEGO PO WITHOUT INCIDENT. BEFORE PT SWALLOWED THE MEDICATION PT STATES I REBUKE THE SONIA OF THE BEAST. PT IS NOW RESTING IN ROOM.
[2022-06-11 14:00] VITALS: BP 90/64; PULSE 93; RESP 16; TEMP 36.6; O2SAT 98
--- NOTE | 2022-06-11 14:56 | P.NPUPN_ITS ---
Subjective NPU Subjective: Patient presents today reporting that she feels a little better. For the first time in several days she answered with other than I deny medical treatment. This morning was the first time she excepted the p.o./oral Invega. This afternoon she was interactive in the questioning. She actually asked this lyric writer how I was doing. No comment about the hinduism sect or anything like that. No concerns reported. Mental Status Exam MSE Comments: This is a slender white female looking older than her stated age in [facility] scrubs with adequate grooming and improved eye contact. No abnormal movements except for mild psychomotor retardation more cooperative with exam in mild distress. Speech was normal rate and decreased volume. Mood described as okay, affect is slightly subdued. Thought process, somewhat organized. Thought content: Denies suicidal or homicidal ideation, there were no delusions reported and only slight paranoia noted, did not question specifically about her delusional content given the first time she was willing to be conversant, she denied auditory or visual hallucinations. Attention and concentration were intact and memory appeared more reliable though none were formally tested. She is alert and oriented to person and place. Insight and judgment are impaired, but improving. Impulse control is limited. Vitals/I&O/Wt Last Vital Signs Temp 98 F 06/11/22 14:00 Pulse 93 06/11/22 14:00 Resp 16 06/11/22 14:00 BP 90/64 06/11/22 14:00 Pulse Ox 98 06/11/22 14:00 O2 Del Method 06/11/22 14:00 A&P Assessment and plan (1) Psychosis: Status: Acute Plan This is a 44 year old white woman with active hyper hinduism delusions who presents on a 96 hour hold after walking to the point of severe dehydration endorsing she has been called by god and that her old life is because she has chosen to follow god and reporting delusions for the past 8 to 9 years. 1. We will get collateral information including possibly patient?s family members. Initiated Invega 6 mg p.o. every morning. And this morning was the first dose that she has taken. Was receiving Geodon 20 mg IM for p.o. refusal, but switching that to Haldol 5 mg IM with Benadryl 50 mg.. Hope is to get tolerance for Invega establish so that we could transfer her over to Invega Sustenna. We have added a 5 mg dose of Haldol at night with 5 mg of Haldol IM for p.o. refusal. 2. Encourage individual, group and milieu therapy 3. Continue q-15 minute check for safety 4. Patient placed on 21-day hold. Involuntary Hold Information 96 Hour Hold: 96 Hour Involuntary Admission: Yes 96 Hour Hold Ending Date: 06/06/22 96 Hour Hold Ending Time: 02:25 Attestations NPU Medical Necessity Statement*: Inpatient hospitalization is medically necessary and the clinically appropriate intervention at this time. We will monitor medications and make changes as indicated. Likely length of stay is 10 to 14 days. She is on the 21-day hold. Coding Level of Care Code Acute Resin Maker for Justen Reyes Diagnoses Psychosis F29
[2022-06-11 20:49] VITALS: BP 106/69; PULSE 109; RESP 16; TEMP 36.7; O2SAT 98
[2022-06-11] MEDS: haloperidol 5 mg Tablet PO (21:04)
[2022-06-12 06:00] VITALS: BP 109/78; PULSE 118; RESP 16; TEMP 36.9; O2SAT 97
[2022-06-12] MEDS: paliperidone ER 6 mg Tablet PO (09:08)
[2022-06-12 14:00] VITALS: BP 110/76; PULSE 105; RESP 16; TEMP 36.9; O2SAT 97
--- NOTE | 2022-06-12 17:35 | P.NPUPN_ITS ---
Subjective NPU Subjective: Patient presents today continuing to make very slow but clear improvement in her paranoia and hyperreligious position. She continues to answer questions like I am blessed, but she continues to be more comfortable talking to this report writer. For the first time since before her hearing I was able to speak with her without a nurse present. We discussed the likelihood of discontinuation of the nighttime Haldol. Mental Status Exam MSE Comments: This is a slender white female looking older than her stated age in [facility] scrubs with adequate grooming and improved eye contact. No abnormal movements except for mild psychomotor retardation more cooperative with exam in no acute distress. Speech was normal rate and decreased volume. Mood described as fine, affect is slightly subdued. Thought process, more organized. Thought content: Denies suicidal or homicidal ideation, there were no delusions reported and only slight paranoia noted, did not question specifically about her delusional content given bridge building as she is becoming more conversant, she denied auditory or visual hallucinations. Attention and concentration were intact and memory appeared more reliable though none were formally tested. She is alert and oriented to person and place. Insight and judgment are impaired, but improving. Impulse control is limited. Vitals/I&O/Wt Last Vital Signs Temp 98.6 F 06/12/22 19:59 Pulse 90 06/12/22 19:59 Resp 16 06/12/22 19:59 BP 95/71 06/12/22 19:59 Pulse Ox 97 06/12/22 19:59 O2 Del Method 06/12/22 14:00 A&P Assessment and plan (1) Psychosis: Status: Acute Plan This is a 44 year old white woman with active hyper hinduism delusions who presents on a 96 hour hold after walking to the point of severe dehydration endorsing she has been called by god and that her old life is because she has chosen to follow god and reporting delusions for the past 8 to 9 years. 1. We will get collateral information including possibly patient?s family members. Initiated Invega 6 mg p.o. every morning. And this morning was the first dose that she has taken. Was receiving Geodon 20 mg IM for p.o. refusal, but switching that to Haldol 5 mg IM with Benadryl 50 mg.. Hope is to get tolerance for Invega establish so that we could transfer her over to Invega Sustenna. We will discontinue 5 mg dose of Haldol at night with 5 mg of Haldol IM for p.o. refusal. 2. Encourage individual, group and milieu therapy 3. Continue q-15 minute check for safety 4. Patient placed on 21-day hold. Involuntary Hold Information 96 Hour Hold: 96 Hour Involuntary Admission: Yes 96 Hour Hold Ending Date: 06/06/22 96 Hour Hold Ending Time: 02:25 Attestations NPU Medical Necessity Statement*: Inpatient hospitalization is medically necessary and the clinically appropriate intervention at this time. We will monitor medications and make changes as indicated. Likely length of stay is 9-13 days. She is on the 21-day hold. Coding Level of Care Code Acute Metalizer Field Operation for Justen Reyes Diagnoses Psychosis F29
[2022-06-12 19:59] VITALS: BP 95/71; PULSE 90; RESP 16; TEMP 37; O2SAT 97
[2022-06-12] MEDS: haloperidol 5 mg Tablet PO (20:19)
--- NOTE | 2022-06-13 03:05 | PC.NURSE ---
Patient took her p.o. Haldol last night and is resting in her bed with eyes closed.
[2022-06-13 06:00] VITALS: BP 99/71; PULSE 110; RESP 16; TEMP 36.4; O2SAT 97
[2022-06-13] MEDS: paliperidone ER 6 mg Tablet PO (09:01)
--- NOTE | 2022-06-13 09:40 | W.PM.NPUPNS ---
Subjective NPU Subjective: Patient presents today reporting that overall she is feeling better. For the first time since she started taking the Invega I questioned her about the thoughts about her spirituality and alevism. She endorsed that in their intensity has reduced and attributed that to taking a step back and having fulfilled his mission with her for now. But she awaits his next instruction. She denies any side effects of the medication and she endorsed being happy that she would not be taking the Haldol tonight because she does not like taking medication in general. Continues to suggest that this time that she does not have any family support. Mental Status Exam MSE Comments: This is a slender white female looking older than her stated age in [facility] scrubs with adequate grooming and improved eye contact. No abnormal movements except for mild psychomotor retardation. More cooperative with exam in no acute distress. Speech was normal rate and decreased volume. Mood described as better, affect is less pensive. Thought process, more organized. Thought content: Denies suicidal or homicidal ideation, there were no delusions reported and only slight paranoia and hyperreligious thinking noted, she denied auditory or visual hallucinations. Attention and concentration were intact and memory appeared more reliable though none were formally tested. She is alert and oriented to person and place. Insight and judgment are impaired, but improving. Impulse control is limited. Vitals/I&O/Wt Last Vital Signs Temp 98.6 F 06/12/22 19:59 Pulse 90 06/12/22 19:59 Resp 16 06/12/22 19:59 BP 95/71 06/12/22 19:59 Pulse Ox 97 06/12/22 19:59 O2 Del Method 06/12/22 14:00 A&P Assessment and plan (1) Psychosis: Status: Acute Plan This is a 44 year old white woman with active hyper confucianist delusions who presents on a 96 hour hold after walking to the point of severe dehydration endorsing she has been called by god and that her old life is because she has chosen to follow god and reporting delusions for the past 8 to 9 years. 1. We will get collateral information including possibly patient?s family members. Initiated Invega 6 mg p.o. every morning. And this morning was the first dose that she has taken. Was receiving Geodon 20 mg IM for p.o. refusal, but switching that to Haldol 5 mg IM with Benadryl 50 mg.. Hope is to get tolerance for Invega establish so that we could transfer her over to Invega Sustenna. Discontinued 5 mg dose of Haldol at night with 5 mg of Haldol IM for p.o. refusal. 2. Encourage individual, group and milieu therapy 3. Continue q-15 minute check for safety 4. Patient placed on 21-day hold. Involuntary Hold Information 96 Hour Hold: 96 Hour Involuntary Admission: Yes 96 Hour Hold Ending Date: 06/06/22 96 Hour Hold Ending Time: 02:25 Attestations NPU Medical Necessity Statement*: Inpatient hospitalization is medically necessary and the clinically appropriate intervention at this time. We will monitor medications and make changes as indicated. Likely length of stay is 8-12 days. Coding Level of Care Code Acute Director Strategic Account Management for Justen Reyes Diagnoses Psychosis F29
[2022-06-13 14:00] VITALS: BP 103/71; PULSE 90; RESP 16; TEMP 36.6; O2SAT 100
[2022-06-13 19:55] VITALS: BP 96/66; PULSE 60; RESP 17; TEMP 36.6; O2SAT 100
[2022-06-14 06:00] VITALS: BP 94/60; PULSE 92; RESP 16; TEMP 36.8; O2SAT 93
[2022-06-14] MEDS: paliperidone ER 6 mg Tablet PO (08:47)
--- NOTE | 2022-06-14 09:12 | PC.NURSE ---
PT IN ROOM, CONTINUES TO ISOLATE AND WITHDRAW. DENIES PAIN. DENIES SI/HI AND AVH AT THIS TIME. PT DOES REPORT TALKING TO THE RIGHT SIDE. PT CONTINUES TO BE HYPER RELIGOUS THOUGHTS. ALL QUESTIONS ANSWERED AND SUPPORT VOICED.
--- NOTE | 2022-06-14 10:54 | P.NPUPN_ITS ---
Subjective NPU Subjective: Patient presents today continuing to show very slow but identifiable improvement in her level of psychotic investment. She identifies that her thoughts about things and restrictive nature have decreased dramatically. She continues to be challenged by the thoughts marked by how she approaches the food, having ritualistic behavior and being concerned about certain people going into her room. She continues to take the medication on her own. Mental Status Exam MSE Comments: This is a slender white female looking older than her stated age in [facility] scrubs with adequate grooming and improved eye contact. No abnormal movements except for mild psychomotor retardation. More cooperative with exam in no acute distress. Speech was normal rate and decreased volume. Mood described as better, affect is less pensive. Thought process, more organized. Thought content: Denies suicidal or homicidal ideation, there were no delusions reported and only slight paranoia and hyperreligious thinking noted, she denied auditory or visual hallucinations. Attention and concentration were intact and memory appeared more reliable though none were formally tested. She is alert and oriented to person and place. Insight and judgment are impaired, but improving. Impulse control is limited. Vitals/I&O/Wt Last Vital Signs Temp 97.9 F 06/13/22 19:55 Pulse 60 06/13/22 19:55 Resp 17 06/13/22 19:55 BP 96/66 06/13/22 19:55 Pulse Ox 100 06/13/22 19:55 O2 Del Method 06/13/22 14:00 A&P Assessment and plan (1) Psychosis: Status: Acute Plan This is a 44 year old white woman with active hyper samaritan delusions who presents on a 96 hour hold after walking to the point of severe dehydration endorsing she has been called by god and that her old life is because she has chosen to follow god and reporting delusions for the past 8 to 9 years. 1. We will get collateral information including possibly patient?s family members. Initiated Invega 6 mg p.o. every morning. And this morning was the first dose that she has taken. Was receiving Geodon 20 mg IM for p.o. refusal, but switching that to Haldol 5 mg IM with Benadryl 50 mg.. Hope is to get tolerance for Invega establish so that we could transfer her over to Invega Sustenna. Discontinued 5 mg dose of Haldol at night with 5 mg of Haldol IM for p.o. refusal. 2. Encourage individual, group and milieu therapy 3. Continue q-15 minute check for safety 4. Patient placed on 21-day hold. Involuntary Hold Information 96 Hour Hold: 96 Hour Involuntary Admission: Yes 96 Hour Hold Ending Date: 06/06/22 96 Hour Hold Ending Time: 02:25 Attestations NPU Medical Necessity Statement*: Inpatient hospitalization is medically necessary and the clinically appropriate intervention at this time. We will monitor medications and make changes as indicated. Likely length of stay is 7-11 days. Coding Level of Care Code Acute Assistant Gm Of Content & Delivery for Justen Reyes Diagnoses Psychosis F29
[2022-06-14 14:00] VITALS: BP 117/84; PULSE 92; RESP 16; TEMP 36.6; O2SAT 98
[2022-06-14 19:34] VITALS: BP 103/70; PULSE 76; RESP 18; TEMP 36.6; O2SAT 99
[2022-06-15 06:00] VITALS: BP 93/60; PULSE 69; RESP 16; TEMP 36.6; O2SAT 99
[2022-06-15] MEDS: paliperidone ER 6 mg Tablet PO (09:27)
--- NOTE | 2022-06-15 11:06 | PC.NURSE ---
NEW ORDERS NEW ORDERS RECEIVED FROM DR. LIZARRAGA TO INCREASE INVEGA 9 MG PO DAILY TO START TOMORROW AND GIVE 3 MG INVEGA NOW TO EQUAL 9 MG. [facility] PT WAS GIVEN EDUCATION, VERBALIZES UNDERSTANDING BUT WON'T TAKE THE SONIA OF THE BEAST.
[2022-06-15] MEDS: paliperidone ER 3 mg Tablet PO (11:41)
[2022-06-15 14:00] VITALS: BP 93/59; PULSE 86; RESP 20; TEMP 36.6; O2SAT 99
--- NOTE | 2022-06-15 14:32 | P.NPUPN_ITS ---
Subjective NPU Subjective: Patient presents today reporting that she is having a reduction in her spiritual thoughts but that it would never go away. She reports that it is a blessing from God for me that she has been able to talk to me and not think about the hillary of the beast. She reports was a little tired but tolerating the increase in Invega from 6 mg to 9 mg. We talked about the possibility of an injection which was not an exciting thought to her. She denied any new issues and reports that she is eating better and sleeping okay. Mental Status Exam MSE Comments: This is a slender white female looking older than her stated age in [facility] scrubs with adequate grooming and improved eye contact. No abnormal movements except for mild psychomotor retardation. More cooperative with exam in no acute distress. Speech was normal rate and decreased volume. Mood described as better, affect is less pensive. Thought process, more organized. Thought content: Denies suicidal or homicidal ideation, there were no delusions reported and only slight paranoia and hyperreligious thinking noted, she denied auditory or visual hallucinations. Attention and concentration were intact and memory appeared more reliable though none were formally tested. She is alert and oriented to person and place. Insight and judgment are impaired, but improving. Impulse control is limited. Vitals/I&O/Wt Last Vital Signs Temp 98 F 06/15/22 14:00 Pulse 86 06/15/22 14:00 Resp 20 H 06/15/22 14:00 BP 93/59 06/15/22 14:00 Pulse Ox 99 06/15/22 14:00 O2 Del Method 06/15/22 06:00 A&P Assessment and plan (1) Psychosis: Status: Acute Plan This is a 44 year old white woman with active hyper zoroastrian delusions who presents on a 96 hour hold after walking to the point of severe dehydration endorsing she has been called by god and that her old life is because she has chosen to follow god and reporting delusions for the past 8 to 9 years. 1. Continue current medication. Increased Invega to 9 mg p.o. every morning. Was receiving Geodon 20 mg IM for p.o. refusal, but switching that to Haldol 5 mg IM with Benadryl 50 mg because the Geodon was ineffective for her. Tolerance for Invega has been established and will transfer her over to Invega Sustenna. Discontinued 5 mg dose of Haldol at night with 5 mg of Haldol IM for p.o. refusal. 2. Encourage individual, group and milieu therapy 3. Continue q-15 minute check for safety 4. Patient placed on 21-day hold. Involuntary Hold Information 96 Hour Hold: 96 Hour Involuntary Admission: Yes 96 Hour Hold Ending Date: 06/06/22 96 Hour Hold Ending Time: 02:25 Attestations NPU Medical Necessity Statement*: Inpatient hospitalization is medically necessary and the clinically appropriate intervention at this time. We will monitor medications and make changes as indicated. Likely length of stay is 6-10 days. Coding Level of Care Code Acute Special Event Assistant for Justen Fwd Diagnoses Psychosis F29
[2022-06-15 21:03] VITALS: BP 100/68; PULSE 74; RESP 16; O2SAT 98
[2022-06-16 06:00] VITALS: BP 83/60; PULSE 86; RESP 18; O2SAT 98
[2022-06-16] MEDS: paliperidone 3 MG, paliperidone 6 MG 9 MG PO (09:49)
--- NOTE | 2022-06-16 11:08 | PC.NURSE ---
PT STATES TODAY IS HER SABBATH AND SHE WILL NOT BE EATING OR DRINKING FOR 24 HOURS. EDUCATED PT THAT STAFF WILL STILL OFFER HER FOOD AND DRINK, IT IS WITHIN HER RIGHTS TO DECLINE BUT WE STILL HAVE TO OFFER AND STILL RESPECT HER EVANGELICAL BELIEFS . PT STATES SHE UNDERSTOOD AND THANKED THIS RN
--- NOTE | 2022-06-16 11:48 | W.PM.NPUPNS ---
Subjective NPU Subjective: Patient presents today reporting that she is doing a little better. We had a fairly lengthy conversation about her reporting dizziness and we discussed concerns that the treatment team has about her limited p.o. intake and that her having decreased food consumption can certainly lead to dizziness or dehydration. She reported that maybe she would eat more. We also discussed the benefits from the treatment team standpoint for her taking the Invega Sustenna which she really did not answer other than to ask about the cost and concerns about not having insurance with a likely expensive of the medication. Mental Status Exam MSE Comments: This is a slender white female looking older than her stated age in [facility] scrubs with adequate grooming and improved eye contact. No abnormal movements except for mild psychomotor retardation. More cooperative with exam in no acute distress. Speech was normal rate and decreased volume. Mood described okay, a little dizzy getting up, affect is less pensive. Thought process, more organized. Thought content: Denies suicidal or homicidal ideation, there were no delusions reported and only slight paranoia and hyperreligious thinking noted, she denied auditory or visual hallucinations. Attention and concentration were intact and memory appeared more reliable though none were formally tested. She is alert and oriented to person and place. Insight and judgment are impaired, but improving. Impulse control is limited. Vitals/I&O/Wt Last Vital Signs Temp 98 F 06/15/22 14:00 Pulse 74 06/15/22 21:03 Resp 16 06/15/22 21:03 BP 100/68 06/15/22 21:03 Pulse Ox 98 06/15/22 21:03 O2 Del Method 06/15/22 06:00 A&P Assessment and plan (1) Psychosis: Status: Acute Plan This is a 44 year old white woman with active hyper confucianism delusions who presents on a 96 hour hold after walking to the point of severe dehydration endorsing she has been called by god and that her old life is because she has chosen to follow god and reporting delusions for the past 8 to 9 years. 1. Continue current medication. Increased Invega to 9 mg p.o. every morning. Was receiving Geodon 20 mg IM for p.o. refusal, but switching that to Haldol 5 mg IM with Benadryl 50 mg because the Geodon was ineffective for her. Tolerance for Invega has been established and will transfer her over to Invega Sustenna. Discontinued 5 mg dose of Haldol at night with 5 mg of Haldol IM for p.o. refusal. 2. Encourage individual, group and milieu therapy 3. Continue q-15 minute check for safety 4. Patient placed on 21-day hold. Involuntary Hold Information 96 Hour Hold: 96 Hour Involuntary Admission: Yes 96 Hour Hold Ending Date: 06/06/22 96 Hour Hold Ending Time: 02:25 Attestations NPU Medical Necessity Statement*: Inpatient hospitalization is medically necessary and the clinically appropriate intervention at this time. We will monitor medications and make changes as indicated. Likely length of stay is 6-10 days. Coding Level of Care Code Acute Component Engineer for Justen Reyes Diagnoses Psychosis F29
[2022-06-16 14:00] VITALS: BP 99/62; PULSE 88; RESP 15; TEMP 36.8; O2SAT 99
[2022-06-16 20:14] VITALS: BP 160/70; PULSE 100; RESP 20; TEMP 36.6
--- NOTE | 2022-06-16 20:15 | PC.NURSE ---
Respiratory was elevated, Pt stated some anxiety and wanted to talk to a female nurse. No s/s of respiratory distress.
[2022-06-17 06:00] VITALS: BP 96/67; PULSE 81; RESP 20; TEMP 36.4; O2SAT 99; BMI 20.6
--- NOTE | 2022-06-17 06:32 | W.PM.NPUPNS ---
Subjective NPU Subjective: Patient presents today making slow progress. She continues to be religiously leaning and somewhat preoccupied but not in a fevers way. We continue to discuss the thought that given her situation the long-acting injectable Invega Sustenna would be appropriate. Her only resistance thus far is economic. Nursing report that she may be starting to eat better and be less concerned about evil in her food. We discussed that there will be a new doctor starting tomorrow. Mental Status Exam MSE Comments: This is a slender white female looking older than her stated age in [facility] scrubs with adequate grooming and improved eye contact. No abnormal movements except for mild psychomotor retardation. More cooperative with exam in no acute distress. Speech was normal rate and decreased volume. Mood described last, affect is less pensive. Thought process, more organized. Thought content: Denies suicidal or homicidal ideation, there were no delusions reported and only slight paranoia and hyperreligious thinking noted, she denied auditory or visual hallucinations. Attention and concentration were intact and memory appeared more reliable though none were formally tested. She is alert and oriented to person and place. Insight and judgment are impaired, but improving. Impulse control is limited. Vitals/I&O/Wt Last Vital Signs Temp 97.8 F 06/16/22 20:14 Pulse 100 06/16/22 20:14 Resp 20 H 06/16/22 20:14 BP 160/70 06/16/22 20:14 Pulse Ox 99 06/16/22 14:00 O2 Del Method 06/16/22 20:14 O2 Flow Rate 98 06/16/22 20:14 A&P Assessment and plan (1) Psychosis: Status: Acute Plan This is a 44 year old white woman with active hyper rastafarian delusions who presents on a 96 hour hold after walking to the point of severe dehydration endorsing she has been called by god and that her old life is because she has chosen to follow god and reporting delusions for the past 8 to 9 years. 1. Continue current medication. Increased Invega to 9 mg p.o. every morning. Was receiving Geodon 20 mg IM for p.o. refusal, but switching that to Haldol 5 mg IM with Benadryl 50 mg because the Geodon was ineffective for her. Tolerance for Invega has been established and will transfer her over to Invega Sustenna. Discontinued 5 mg dose of Haldol at night with 5 mg of Haldol IM for p.o. refusal. 2. Encourage individual, group and milieu therapy 3. Continue q-15 minute check for safety 4. Patient placed on 21-day hold. Involuntary Hold Information 96 Hour Hold: 96 Hour Involuntary Admission: Yes 96 Hour Hold Ending Date: 06/06/22 96 Hour Hold Ending Time: 02:25 Attestations NPU Medical Necessity Statement*: Inpatient hospitalization is medically necessary and the clinically appropriate intervention at this time. We will monitor medications and make changes as indicated. Likely length of stay is 6-10 days. Coding Level of Care Code Acute Policy Change Clerk for Loryg Fwd Diagnoses Psychosis F29
[2022-06-17] MEDS: paliperidone 3 MG, paliperidone 6 MG 9 MG PO (09:44)
[2022-06-17 14:00] VITALS: BP 105/73; PULSE 104; RESP 18; TEMP 36.6; O2SAT 100
[2022-06-17 20:57] VITALS: BP 88/60; PULSE 96; RESP 20; TEMP 36.7; O2SAT 100
[2022-06-18] MEDS: hyDROXYzine 25 mg Capsule 50 MG PO (04:25)
[2022-06-18 06:00] VITALS: BP 96/64; PULSE 78; RESP 18; TEMP 36.8; O2SAT 98
[2022-06-18] MEDS: paliperidone 3 MG, paliperidone 6 MG 9 MG PO (08:54)
[2022-06-18 14:00] VITALS: BP 94/60; PULSE 114; RESP 18; TEMP 36.6; O2SAT 97
--- NOTE | 2022-06-18 17:24 | P.NPUPN_ITS ---
Subjective NPU Subjective: Patient is 46 year old with psychotic disorder NOS, currently on Invega 9 mg daily who continues to show evidence of alarming concerns about food contamination associated with some moravian believes. She had reported that she felt that none of her family members were supportive as they were [facility]. She reports that she was simply passing through this area from [place] as a traveler on foot when she was stopped here. She remained somewhat guarded regarding her motivations for particular style of eating and reported no desire to change her way of thinking. Staff notes that the patient continues to refuse to eat anything that has labels of food brands. She minimized any thoughts of having been poisoned but would not elaborate regarding her problems. She continues to remain guarded on the milieu and struggled with completion of activities of daily living. She had not refused her oral intake of paliperidone last night.. Mental Status Exam MSE Comments: This is a slender white female looking much older than her stated age in [facility] scrubs with adequate grooming and improved eye contact. No abnormal movements except for mild psychomotor retardation. More cooperative with exam in no acute distress. Speech was normal rate and decreased volume. Mood described better affect is blunted. Thought process, remained disorganized and superficial at times. Thought content: Denies suicidal or homicidal ideation, there was moravian delusions and hyperreligiosity present. She denied auditory or visual hallucinations. Attention and concentration were intact and memory appeared more reliable though none were formally tested. She is alert and oriented to person and place. Insight and judgment are impaired. Impulse control is limited. Vitals/I&O/Wt Last Vital Signs Temp 98 F 06/18/22 14:00 Pulse 114 H 06/18/22 14:00 Resp 18 06/18/22 14:00 BP 94/60 06/18/22 14:00 Pulse Ox 97 06/18/22 14:00 O2 Del Method 06/18/22 14:00 O2 Flow Rate 98 06/17/22 08:00 Weight last 48 hrs Weight 56.245 kg A&P Assessment and plan (1) Psychosis: Status: Acute Plan This is a 44 year old white woman with active hyper moravian delusions who presents on a 96 hour hold after walking to the point of severe dehydration endorsing she has been called by god and that her old life is because she has chosen to follow god and reporting delusions for the past 8 to 9 years. 1. Continue current medication. Continue Invega 9 mg p.o. every morning. Switch to Invega Sustenna. 2. Encourage individual, group and milieu therapy 3. Continue q-15 minute check for safety 4. Patient placed on 21-day hold. Involuntary Hold Information 96 Hour Hold: 96 Hour Involuntary Admission: Yes 96 Hour Hold Ending Date: 06/06/22 96 Hour Hold Ending Time: 02:25 Attestations NPU Medical Necessity Statement*: Inpatient hospitalization is medically necessary and the clinically appropriate intervention at this time. We will monitor medications and make changes as indicated. Likely length of stay is 6-10 days. Coding Level of Care Code Established Pt Acute Needle Control Cheniller for Justen Reyes Patient Type Established History Problem Focused Exam Problem Focused Medical Decision Making Straight Forward Diagnoses Psychosis F29
[2022-06-18 20:39] VITALS: BP 84/57; PULSE 109; RESP 18; TEMP 36.6; O2SAT 98
[2022-06-19 06:00] VITALS: BP 92/67; PULSE 81; RESP 18; TEMP 36.7; O2SAT 100
[2022-06-19] MEDS: acetaminophen 325 mg Tablet 650 MG PO ×2 (08:06→19:13)
[2022-06-19] MEDS: paliperidone 3 MG, paliperidone 6 MG 9 MG PO (08:06)
--- NOTE | 2022-06-19 11:45 | PC.NURSE ---
PT REQUESTED TYLENOL FOR LEFT UNDERARM PAIN. PT RATED PAIN A 1/10.
[2022-06-19 14:00] VITALS: BP 119/72; PULSE 97; RESP 18; TEMP 36.6; O2SAT 98
--- NOTE | 2022-06-19 17:01 | W.PM.NPUPNS ---
Subjective NPU Subjective: Patient is 46 year old with psychotic disorder NOS, currently on Invega 9 mg daily who continues to show evidence of active paranoia on the unit. She again remained vague regarding why she was hospitalized and when asked detailed questions regarding her previous location she continued to state that God had told her not to look into the past. She denied any auditory hallucinations although she did state that she continued to speak with God and that God had been telling her to move forward not backwards. The patient had reported once again that her social supports were limited as her family members had where shipped the devil. Mental Status Exam MSE Comments: This is a slender white female looking much older than her stated age in [facility] scrubs with adequate grooming and improved eye contact. No abnormal movements except for mild psychomotor retardation. More limited cooperation with exam today, in no acute distress. Speech was normal rate and decreased volume. Mood described allright affect is blunted and mood incongruent. Thought process, remained disorganized and superficial at times. Thought content: Denies suicidal or homicidal ideation, there was holiness delusions and hyperreligiosity present. She denied auditory or visual hallucinations. Attention and concentration were intact and memory appeared more reliable though none were formally tested. She is alert and oriented to person and place. Insight and judgment are impaired. Impulse control is limited. Vitals/I&O/Wt Last Vital Signs Temp 98 F 06/19/22 14:00 Pulse 97 06/19/22 14:00 Resp 18 06/19/22 14:00 BP 119/72 06/19/22 14:00 Pulse Ox 98 06/19/22 14:00 O2 Del Method 06/19/22 06:00 O2 Flow Rate 98 06/17/22 08:00 A&P Assessment and plan (1) Psychosis: Status: Acute Plan This is a 44 year old white woman with active hyper holiness delusions who presents on a 96 hour hold after walking to the point of severe dehydration endorsing she has been called by god and that her old life is because she has chosen to follow god and reporting delusions for the past 8 to 9 years. 1. Continue current medication. Continue Invega 9 mg p.o. every morning. Patient not wishing for IM sustenna and is currently compliant with oral medications. 2. Encourage individual, group and milieu therapy 3. Continue q-15 minute check for safety 4. Patient placed on 21-day hold. Involuntary Hold Information 96 Hour Hold: 96 Hour Involuntary Admission: Yes 96 Hour Hold Ending Date: 06/06/22 96 Hour Hold Ending Time: 02:25 Attestations NPU Medical Necessity Statement*: Inpatient hospitalization is medically necessary and the clinically appropriate intervention at this time. We will monitor medications and make changes as indicated. Likely length of stay is 6-10 days. Coding Level of Care Code Established Pt Acute Insulation Board Back Tender for Chg Fwd Patient Type Established History Problem Focused Exam Problem Focused Medical Decision Making Straight Forward Diagnoses Psychosis F29
[2022-06-19] MEDS: magnesium hydroxide 30 mL UDC PO (19:13)
[2022-06-19] MEDS: ondansetron 4 MG Tablet PO (19:14)
[2022-06-19 21:48] VITALS: BP 104/65; PULSE 101; RESP 17; TEMP 36.8; O2SAT 99
--- NOTE | 2022-06-20 03:00 | PC.NURSE ---
Patient complaining of tenderness under left her arm traveling down underside of breast. patient states it is enough for her to ask for Tylenol do to the discomfort. also states she is have abdominal spasm where right ovary located. she has a history of ovarian cyst and endometriosis on right side.
[2022-06-20] MEDS: acetaminophen 325 mg Tablet 650 MG PO ×2 (03:40→11:24)
[2022-06-20 06:00] VITALS: BP 120/78; PULSE 78; RESP 16; TEMP 36.6; O2SAT 98
--- NOTE | 2022-06-20 07:49 | PC.NURSE ---
shift assessment denies all during shift assessment, but c/o some constipation, reports last bowel movement was today 06/20/22 but was not efficient
[2022-06-20] MEDS: paliperidone 3 MG, paliperidone 6 MG 9 MG PO (08:01)
[2022-06-20] MEDS: magnesium hydroxide 30 mL UDC PO (13:53)
[2022-06-20 14:00] VITALS: BP 93/66; PULSE 90; RESP 16; TEMP 36.7; O2SAT 99
--- NOTE | 2022-06-20 14:25 | P.NPUPN_ITS ---
Subjective NPU Subjective: Patient is 46 year old with psychotic disorder NOS, currently on Invega 9 mg daily who continues to appear paranoid on the unit. She and reports that she has been hearing the voice of God and continued to report that other previous family members were worshiping Satan. She continued to refuse any modification with her Invega to the intramuscular form. She reported that she continued to not want to look into the past but reported that she was on God's journey and she did not know where it would lead. Mental Status Exam MSE Comments: This is a slender white female looking much older than her stated age in [facility] scr[facility] with adequate grooming and improved eye contact. No abnormal movements except for mild psychomotor retardation. She remained guarded on the unit today, and continued to isolate herself. Speech was normal rate and decreased volume, normal prosody. Mood described mood as okay. affect is blunted and mood incongruent. Thought process, remained disorganized and superficial at times. Thought content: Denies suicidal or homicidal ideation, there was the presence of bizarre yarsani delusions. She denied auditory or visual hallucinations. Attention and concentration were intact and memory appeared more reliable though none were formally tested. She is alert and oriented to person and place. Insight and judgment are impaired. Impulse control is limited. Vitals/I&O/Wt Last Vital Signs Temp 97.9 F 06/20/22 06:00 Pulse 78 06/20/22 06:00 Resp 16 06/20/22 06:00 BP 120/78 06/20/22 06:00 Pulse Ox 98 06/20/22 06:00 O2 Del Method 06/20/22 06:00 O2 Flow Rate 98 06/17/22 08:00 A&P Assessment and plan (1) Psychosis: Status: Acute Plan This is a 44 year old white woman with active hyper yarsani delusions who presents on a 96 hour hold after walking to the point of severe dehydration endorsing she has been called by god and that her old life is because she has chosen to follow god and reporting delusions for the past 8 to 9 years. 1. Continue current medication. Continue Invega 9 mg p.o. every morning. Patient not wishing for IM sustenna and is currently compliant with oral medications at 9mg of invega at night. 2. Encourage individual, group and milieu therapy 3. Continue q-15 minute check for safety 4. Patient placed on 21-day hold. Involuntary Hold Information 96 Hour Hold: 96 Hour Involuntary Admission: Yes 96 Hour Hold Ending Date: 06/06/22 96 Hour Hold Ending Time: 02:25 Attestations NPU Medical Necessity Statement*: Inpatient hospitalization is medically necessary and the clinically appropriate intervention at this time. We will monitor medications and make changes as indicated. Likely length of stay is 6-10 days. Coding Level of Care Code Established Pt Acute Title Lawyer for Chg Fwd Patient Type Established History Problem Focused Exam Problem Focused Medical Decision Making Straight Forward Diagnoses Psychosis F29
[2022-06-20 21:07] VITALS: BP 101/70; PULSE 105; RESP 16; TEMP 36.6; O2SAT 96
[2022-06-21] MEDS: acetaminophen 325 mg Tablet 650 MG PO ×3 (00:46→18:30)
[2022-06-21 05:40] VITALS: BP 100/71; PULSE 94; RESP 15; TEMP 36.4; O2SAT 100
[2022-06-21] MEDS: paliperidone 3 MG, paliperidone 6 MG 9 MG PO (10:26)
--- NOTE | 2022-06-21 10:35 | PC.NURSE ---
CONTINUES TO ISOLATE AND WITHDRAW. EATS ALL MEALS IN R/OOM. PT DENIES SI/HI AND AVH AT THIS TIME. PT REMAINS ISOLATIVE IN ROOM. REPORTS PAIN 8/10 TYLENOL WAS GIVEN ORDERED. PT STATES SHE DID NOT SLEEP WELL. ALL QUESTIONS ANSWERED AND SUPPORT VOICED.
[2022-06-21 14:00] VITALS: BP 93/60; PULSE 119; RESP 16; TEMP 36.6; O2SAT 98
[2022-06-21] MEDS: simethicone 80 mg Chew PO (15:56)
--- NOTE | 2022-06-21 16:45 | PC.NURSE ---
NEW ORDER MEDICAL CONSULT ORDERED BY DR. FLORIAN. ER CALLED AND THEY STATE DR. MIRANDA IS NEXT UP. DR WAS NOTIFIED OF PT COMPLAINTS. PT REPORT PAIN IN LEFT AXILLARY REGION THAT RADIATES DOWN UNDER HER BREAST. PT THEN REPORTED DISCHARGE FROM BREAST AND PAIN IN RIGHT LOWER QUADRANT. PT STATES SHE HAS HAD EMERGENT SURGERY DUE TO ENDOMETRIOSIS. TYLENOL WAS GIVEN PREVIOUSLY IN SHIFT. PT WAS EDUCATED ABOUT NEW ORDERS. VERBALIZED UNDERSTANDING.
--- NOTE | 2022-06-21 17:46 | P.NPUPN_ITS ---
Subjective NPU Subjective: Patient is 46 year old with psychotic disorder NOS, currently on Invega 9 mg daily who continues to appear paranoid on the unit. She continues to isolate herself. She reports that she has been feeling better. She reports that she believes in the rapture and that any previous information known by others has been restricted to herself and to no one else. She reportedly stated that she has been having some physical complaints below her left breast and abdominal discomfort with a past history of a hysterectomy (partial). She reported adequate sleep. She reports no mood symptoms. She continues to state that she is on a mission from [place] with no particular location where she wishes to live or to settle down in at this time. Mental Status Exam MSE Comments: This is a slender white female looking much older than her stated age in [facility] scrubs with adequate grooming and improved eye contact. No abnormal movements except for mild psychomotor retardation. She remained guarded on the unit today, and continued to isolate herself. Speech was normal rate and decreased volume, normal prosody. Mood described mood as okay. affect is blunted and mood incongruent. Thought process, remained disorganized and superficial at times. Thought content: Denies suicidal or homicidal ideation, there was the presence of bizarre rastafari delusions. She denied auditory or visual hallucinations. Attention and concentration were intact and memory appeared more reliable though none were formally tested. She is alert and oriented to person and place. Insight and judgment are impaired. Impulse control is limited. Vitals/I&O/Wt Last Vital Signs Temp 97.9 F 06/21/22 14:00 Pulse 119 H 06/21/22 14:00 Resp 16 06/21/22 14:00 BP 93/60 06/21/22 14:00 Pulse Ox 98 06/21/22 14:00 O2 Del Method 06/21/22 05:40 O2 Flow Rate 98 06/17/22 08:00 A&P Assessment and plan (1) Psychosis: Status: Acute Plan This is a 44 year old white woman with active hyper rastafari delusions who presents on a 96 hour hold after walking to the point of severe dehydration endorsing she has been called by god and that her old life is because she has chosen to follow god and reporting delusions for the past 8 to 9 years. 1. Continue current medication. Continue Invega 9 mg p.o. every morning. Patient not wishing for IM sustenna and is currently compliant with oral medications at 9mg of invega at night. 2. Encourage individual, group and milieu therapy 3. Continue q-15 minute check for safety 4. Patient placed on 21-day hold. Involuntary Hold Information 96 Hour Hold: 96 Hour Involuntary Admission: Yes 96 Hour Hold Ending Date: 06/06/22 96 Hour Hold Ending Time: 02:25 Attestations NPU Medical Necessity Statement*: Inpatient hospitalization is medically necessary and the clinically appropriate intervention at this time. We will monitor medications and make changes as indicated. Likely length of stay is 6-10 days. Coding Level of Care Code Established Pt Acute Customer Contact Specialist for Chg Fwd Patient Type Established History Problem Focused Exam Problem Focused Medical Decision Making Straight Forward Diagnoses Psychosis F29
--- NOTE | 2022-06-21 18:11 | PC.NURSE ---
DR. ESCALANTE IN TO SEE PT. PT STATES SHE IS NEEDING SOMETHING TO HELP HER HAVE A BM. NEW ORDERS RECEIVED TO GIVE MIRALAX 17 MG NOW. ORDERS PLACED. MED NURSE NOTIFIED.
[2022-06-21] MEDS: polyethylene glycol 3350 Pkt 17 gm PO (18:23)
[2022-06-21] MEDS: ondansetron 4 MG Tablet PO (18:46)
--- NOTE | 2022-06-21 18:48 | US_ITS ---
WS: [id number] ULTRASOUND SOFT TISSUES LEFT axilla. HISTORY: L axilla - painful lump COMPARISON: None available. TECHNIQUE: 2-D and color Doppler imaging is submitted. No soft tissue abnormality is identified within the LEFT axilla. The LEFT axillary vein is noted in t his location. There is normal vascularity present. Good compressibility. No soft tissue abnormality. No adenopathy. US/US soft tissue/extremity [id number] IMPRESSION: Negative ultrasound LEFT axilla.
--- NOTE | 2022-06-21 18:48 | CTR_ITS ---
PROCEDURE INFORMATION: Exam: CT Abdomen And Pelvis Without Contrast Exam date and time: 06/21/2022 7:38 PM Age: 46 years old Clinical indication: Pain; Other: Flank; Prior surgery; Surgery type: See below; Additional info: Rlq pain, HX R salpingectomy for toa, endometriosis TECHNIQUE: Imaging protocol: Computed tomography of the abdomen and pelvis without contrast. Radiation optimization: All CT scans at this facility use at least one of these dose optimization techniques: automated exposure control; mA and/or kV adjustment per patient size (includes targeted exams where dose is matched to clinical indication); or iterative reconstruction. COMPARISON: No relevant prior studies available. RADIATION DOSE METRICS: Total DLP (mGy-cm): 354.91 FINDINGS: Liver: Normal. No mass. Gallbladder and bile ducts: Normal. No calcified stones. No ductal dilation. Pancreas: Normal. No ductal dilation. Spleen: Normal. No splenomegaly. Adrenal glands: Normal. No mass. Kidneys and ureters: Normal. No renal stone or hydronephrosis. Stomach and bowel: No intestinal obstruction. A large amount of stool is present in the colon. Appendix: The appendix is normal. Intraperitoneal space: Unremarkable. No free air. No significant fluid collection. Vasculature: Unremarkable. No abdominal aortic aneurysm. Lymph nodes: Unremarkable. No enlarged lymph nodes. Urinary bladder: Unremarkable as visualized. Reproductive: Unremarkable as visualized. Bones/joints: [id number] degenerative changes are present in the lower lumbar spine. No acute fracture. Soft tissues: Unremarkable. CT/CT abdomen pelvis con [id number] IMPRESSION: No acute abnormality is seen in the abdomen or pelvis. The appendix is normal. Possible constipation.
--- NOTE | 2022-06-21 18:59 | PM.HP ---
Providers/Chief Complaint Admitting Physician: Rafael Arriaga MD Chief Complaint: SI History of Present Illness 46-year-old lady without much past medical history currently admitted due to psychosis on neuropsychiatric unit with remote history of endometriosis, tubo-ovarian abscess for which she needed right salpingectomy, reports several day history of left axillary painful knot which hurts when she palpates it, currently not painful after having had some Tylenol. She also reports while in the shower noticed some discharge from both nipples that had dried up and crusted. She also has had a few days of right lower quadrant pain which feels like squeezing sensation. She denies any fever or chills. Denies any rash erythema or visible swelling on her arm or left breast. Denies any nausea vomiting or diarrhea. Has been having some constipation. Denies any vaginal bleeding or discharge. Review of Systems Const: Denies: fever(s), chills, body aches or malaise Eyes: Denies: change in vision, eye discomfort or eye redness ENMT: Denies: throat pain, oral sores or ear or mastoid pain Card: Denies: chest pain, edema, pre-syncope or dyspnea on exertion Resp: Denies: dyspnea, productive cough, change in phlegm color or hemoptysis GI: Reports: abdominal pain; Denies: nausea, vomiting, diarrhea, constipation, hematochezia or melena : Denies: flank pain, urinary frequency or hematuria Musc: Denies: back pain, joint swelling or joint redness Skin/Breast: Reports: other (L axilla painful knot); Denies: rash or new lesions Neuro: Denies: headache(s), numbness in extremities, weakness in extremities, dizziness, confusion or seizure-like activity Endo: Reports: other (BL nipple discharge); Denies: polyuria or polydipsia Lukas/Lymph: Denies: easy bleeding or tender lymph nodes All/Imm: Denies: urticaria or tongue swelling Medications/Allergies Home Medications Medication Instructions Recorded Confirmed Last Taken Type No Known Home Medications 05/31/22 05/31/22 Unknown History Allergies Allergy/AdvReac Type Severity Reaction Status Date / Time doxycycline Allergy Unknown Verified 05/31/22 02:53 erythromycin base Allergy Unknown Verified 05/31/22 02:53 Penicillins Allergy ALGY-Anaphy Verified 05/31/22 02:53 laxis sulfamethoxazole Allergy Unknown Verified 05/31/22 02:53 [From Bactrim] trimethoprim [From Bactrim] Allergy Unknown Verified 05/31/22 02:53 PFSH Acute PFSH: Medical History Endometriosis Tubo-ovarian abscess Surgical History H/O oral surgery H/O unilateral salpingectomy Family History Other No significant family history Social History Smoking and tobacco status: never smoked Alcohol intake: never Substance/Drug Use: never Lives independently: Yes Household members: none Marital status: Single Vitals/I&O/Wt Last Vital Signs Temp 97.9 F 06/21/22 14:00 Pulse 119 H 06/21/22 14:00 Resp 16 06/21/22 14:00 BP 93/60 06/21/22 14:00 Pulse Ox 98 06/21/22 14:00 O2 Del Method 06/21/22 05:40 O2 Flow Rate 98 06/17/22 08:00 Physical Exam Const: COMMON NORMALS: patient oriented x3 and alert GENERAL APPEARANCE: cooperative ORIENTATION/CONSCIOUSNESS: Yes awake HENMT: COMMON NORMALS: oropharynx normal Neck/C-Spine: COMMON NORMALS: no JVD Chest: OTHER: Examined with her nurse, she did allow me to examine the axilla but not her breast. L axilla with tender lump, no superficial cellulitis, no wound. Showed breasts to the nurse explaining about the discharge. Resp: COMMON NORMALS: normal respiratory effort and clear to auscultation bilaterally AUSCULTATION: clear to auscultation bilaterally Cardio: COMMON NORMALS: no JVD, regular rhythm, S1 normal heart sound present, S2 normal heart sound present and No murmurs present (Cardio) RHYTHM: regular rhythm HEART SOUNDS: S1 normal heart sound present and S2 normal heart sound present GI: COMMON NORMALS: Normal to inspection, nondistended, normoactive bowel sounds present and Soft to palpation PALPATION: Yes Soft to palpation and Yes Tenderness to palpation present (GI) Details: RLQ Extremity: COMMON NORMALS: no joint enlargement and no pedal edema Neuro: COMMON NORMALS: patient oriented x3 and moves all extremities SENSORIUM/ORIENTATION: Yes alert Skin: COMMON NORMALS: no rashes or lesions noted GENERAL SKIN EXAM: no rashes or lesions noted A&P Assessment and plan (1) Psychosis: Status: Acute (2) Tenderness of left axilla: Possible enlarged lymph node. She does not appear to have any wounds. We will examine with soft tissue ultrasound. Status: Acute (3) Bilateral nipple discharge: Possible hyperprolactinemia. Will check prolactin level. Paliperidone is atypical, but may still cause hyperprolactinemia. Consider switch of her antipsychotic, possibly to aripiprazole. Status: Acute (4) Right lower quadrant abdominal tenderness: Will assess CBC, CMP, discussed with her also assessment with CT abdomen pelvis. Status: Acute Attestations Medical Necessity Statement*: Continue admission for evaluation and management of acute psychosis. Coding Level of Care Code Acute Sound Effects Technician for Chg Fwd Exam Comprehensive Diagnoses Psychosis F29 Tenderness of left axilla M79.622 Bilateral nipple discharge N64.52 Right lower quadrant abdominal tenderness R10.813
[2022-06-21 20:26] LABS: Basophils # 0.1 10^3/uL (0.0-0.1); Basophils % 0.6 %; Eosinophils # 0.1 10^3/uL (0.0-0.8); Eosinophils % 1.3 %; Hematocrit 35.6 % (37.0-47.0); Hemoglobin 11.6 g/dL (11.5-15.3); Lymphocytes # 2.3 10^3/uL (0.8-4.8); Lymphocytes % 29.7 %; Mean Corpuscular HGB Conc 32.6 g/dL (30.0-36.0); Mean Corpuscular Hemoglobin 30.1 pg (28.0-34.0); Mean Corpuscular Volume 92.2 fl (81-99); Mean Platelet Volume 11.5 fL (7.4-10.4); Monocytes # 0.7 10^3/uL (0.2-0.9); Monocytes % 9.2 %; Neutrophils # 4.54 10^3/uL (1.8-7.7); Neutrophils % 58.8 %; Nucleated Red Blood Cells % 0 %; Platelet Count 199 10^3/cmm (130-400); Red Blood Count 3.86 10^6/uL (4.1-5.3); Red Cell Distribution Width 13.1 % (12.1-15.1); White Blood Count 7.7 10^3/uL (4.0-10.0)
[2022-06-21 20:38] LABS: Alanine Aminotransferase 15 U/L (0-33); Albumin Level 4.3 g/dL (3.5-5.2); Alkaline Phosphatase 106 U/L (35-105); Anion Gap 15.1 (5-19); Aspartate Amino Transferase 16 U/L (0-32); Blood Urea Nitrogen 20 mg/dL (6-20); Calcium 9.4 mg/dL (8.5-10.5); Carbon Dioxide 26 mmol/L (22-29); Chloride 101 mmol/L (98-107); Globulin 2.2 g/dL (1.3-4.6); Glomerular Filtration Rate 77.2 mL/min (90-130); Glucose 106 mg/dL (65-115); Osmolality Calculated 289 mOsm/kg (285-295); Potassium 4.1 mmol/L (3.5-5.1); Sodium 138 mmol/L (136-145); Total Bilirubin 0.2 mg/dL (0.15-1.2); Total Protein 6.5 g/dL (6.6-8.7)
[2022-06-21 21:54] VITALS: BP 102/63; PULSE 107; RESP 17; TEMP 36.7; O2SAT 98
[2022-06-22] MEDS: acetaminophen 325 mg Tablet 650 MG PO ×2 (03:10→16:33)
[2022-06-22 06:00] VITALS: BP 100/68; PULSE 93; RESP 17; TEMP 36.8; O2SAT 98
[2022-06-22 08:45] LABS: Prolactin 76.48 ng/mL (4.8-23.3)
[2022-06-22] MEDS: paliperidone 3 MG, paliperidone 6 MG 9 MG PO (09:47)
[2022-06-22 14:00] VITALS: BP 92/67; PULSE 87; RESP 16; TEMP 36.8; O2SAT 97
[2022-06-22] MEDS: paliperidone palmitate 234 mg Syringe IM (16:32)
--- NOTE | 2022-06-22 16:34 | P.NPUPN_ITS ---
Subjective NPU Subjective: Patient is 46 year old with psychotic disorder NOS, currently on Invega 9 mg daily who continues to appear paranoid on the unit. Patient continued guarded on the milieu while isolating herself from the rest of the peers on the unit. She continued to report that she has been informed by God to not look in the to the past. She continued to report no side effects from medications and reports that she did not wish to receive any Geodon again but would be agreeable to the intramuscular version of Invega. The patient continued to report that members of her family with other staff here have the hillary of the devil. Mental Status Exam MSE Comments: This is a slender white female looking much older than her stated age in [facility] with a disheveled appearance and fair eye contact. No abnormal movements except for mild psychomotor retardation. She remained guarded on the unit today, and continued to isolate herself. Speech was normal rate and decreased volume, normal prosody. Mood described mood as good. Her affect is blunted and mood incongruent. Thought process, remained disorganized and superficial at times. Thought content: Denies suicidal or homicidal ideation, there was the presence of bizarre baptist delusions. She denied auditory or visual hallucinations. Attention and concentration were intact and memory appeared more reliable though none were formally tested. She is alert and oriented to person and place. Insight and judgment are impaired. Im pulse control is limited. Vitals/I&O/Wt Last Vital Signs Temp 98.2 F 06/22/22 14:00 Pulse 87 06/22/22 14:00 Resp 16 06/22/22 14:00 BP 92/67 06/22/22 14:00 Pulse Ox 97 06/22/22 14:00 O2 Del Method 06/22/22 06:00 O2 Flow Rate 98 06/22/22 08:00 Data NPU : 06/21/22 20:10 06/21/22 20:10 A&P Assessment and plan (1) Psychosis: Status: Acute (2) Tenderness of left axilla: Possible enlarged lymph node. She does not appear to have any wounds. We will examine with soft tissue ultrasound. Status: Acute (3) Bilateral nipple discharge: Possible hyperprolactinemia. Will check prolactin level. Paliperidone is atypical, but may still cause hyperprolactinemia. Consider switch of her antipsychotic, possibly to aripiprazole. Status: Acute (4) Right lower quadrant abdominal tenderness: Will assess CBC, CMP, discussed with her also assessment with CT abdomen pelvis. Status: Acute Plan This is a 44 year old white woman with active hyper baptist delusions who presents on a 96 hour hold after walking to the point of severe dehydration endorsing she has been called by god and that her old life is because she has chosen to follow god and reporting delusions for the past 8 to 9 years. 1. Continue current medication.? Continue? Invega? 9 mg p.o. every morning, Patient given Invega sustenna 234mg IM today. 2. Encourage individual, group and milieu therapy 3. Continue q-15 minute check for safety 4.? Patient placed on 21-day hold. Involuntary Hold Information 96 Hour Hold: 96 Hour Involuntary Admission: Yes 96 Hour Hold Ending Date: 06/06/22 96 Hour Hold Ending Time: 02:25 Attestations NPU Medical Necessity Statement*: Inpatient hospitalization is medically necessary and the clinically appropriate intervention at this time. We will monitor medications and make changes as indicated with likely length of stay is 6-10 days. Coding Level of Care Code Established Pt Acute Brim Stretcher for Loryg Fwd Patient Type Established History Problem Focused Exam Problem Focused Medical Decision Making Straight Forward Diagnoses Psychosis F29 Tenderness of left axilla M79.622 Bilateral nipple discharge N64.52 Right lower quadrant abdominal tenderness R10.813
--- NOTE | 2022-06-22 17:21 | PC.NURSE ---
1632 Administered Invega Sustenna 234mg IM in Right Deltoid, pt tolerated well.
[2022-06-22] MEDS: polyethylene glycol 3350 Pkt 17 gm PO (18:09)
[2022-06-22] MEDS: simethicone 80 mg Chew PO (18:09)
--- NOTE | 2022-06-22 18:45 | P.PN_ITS ---
Subjective Subjective: Tenderness under her left armpit is still there, unchanged. We discussed with her results of ultrasound which did not show a lymph node any collection, and she has had no cellulitis. She concedes it could be a pulled muscle from when she was exercising. She is still bothered by some abdominal d iscomfort states mostly gassy. Discussed with her results of CT scan which does show some constipation. Vitals/I&O/Wt Last Vital Signs Temp 98.2 F 06/22/22 14:00 Pulse 87 06/22/22 14:00 Resp 16 06/22/22 14:00 BP 92/67 06/22/22 14:00 Pulse Ox 97 06/22/22 14:00 O2 Del Method 06/22/22 06:00 O2 Flow Rate 98 06/22/22 08:00 Physical Exam Const: COMMON NORMALS: patient oriented x3 and alert GENERAL APPEARANCE: cooperative ORIENTATION/CONSCIOUSNESS: Yes awake HENMT: COMMON NORMALS: oropharynx normal Neck/C-Spine: COMMON NORMALS: no JVD Resp: COMMON NORMALS: normal respiratory effort and clear to auscultation bilaterally AUSCULTATION: clear to auscultation bilaterally Cardio: COMMON NORMALS: no JVD, regular rhythm, S1 normal heart sound present, S2 normal heart sound present and No murmurs present (Cardio) RHYTHM: regular rhythm HEART SOUNDS: S1 normal heart sound present and S2 normal heart sound present GI: COMMON NORMALS: Normal to inspection, nondistended, normoactive bowel sounds present and Soft to palpation PALPATION: Yes Soft to palpation and Yes Tenderness to palpation present (GI) Extremity: COMMON NORMALS: no joint enlargement and no pedal edema Neuro: COMMON NORMALS: patient oriented x3 and moves all extremities SENSORIUM/ORIENTATION: Yes alert Skin: COMMON NORMALS: no rashes or lesions noted GENERAL SKIN EXAM: no ra shes or lesions noted Data : 06/21/22 20:10 06/21/22 20:10 A&P Assessment and plan (1) Psychosis: Status: Acute (2) Bilateral nipple discharge: Hyperprolactinemia, prolactin level in moderate elevated range in line with likely antipsychotic induced hyperprolactinemia. Consider change in medication, possibly something like aripiprazole. After discharge should follow-up with primary provider for reassessment and resolution of hyperprolactinemia. If worsening or not resolving consideration of additional imaging of pituitary by MRI. Status: Acute (3) Tenderness of left axilla: Axillary ultrasound without any sign of lymph node, no fluid collection, she has had no cellulitis. She concedes it may have been a pulled muscle after she was exercising. Follow-up with primary provider. Status: Acute (4) Constipation: Abdominal complaint, not so much right lower quadrant today, but feeling somewhat bloated, gassy. Discussed with her CT results. No acute abnormality. Noted some constipation. Add Metamucil, MiraLAX. Status: Acute (5) Right lower quadrant abdominal tenderness: Not so much bothered by right lower quadrant discomfort today, somewhat bloated and gassy. Constipation as above. Status: Acute Plan We will sign off at this time. Please feel free to call with any questions or any further issues. Attestations Medical Necessity Statement*: Continue admission for evaluation and management of acute psychosis. Coding Level of Care Code Acute Boiler Or Engine Operator for [facility] Fwd Diagnoses Psychosis F29 Bilateral nipple discharge N64.52 Tenderness of left axilla M79.622 Constipation K59.00 Right lower quadrant abdominal tenderness R10.813
[2022-06-22 20:17] VITALS: RESP 15
[2022-06-23 06:00] VITALS: RESP 17
[2022-06-23] MEDS: polyethylene glycol 3350 Pkt 17 gm PO (08:58)
[2022-06-23] MEDS: paliperidone ER 3 mg Tablet 6 MG PO (08:58)
[2022-06-23] MEDS: psyllium powder Pkt 1 PACKET PO (09:41)
[2022-06-23] MEDS: acetaminophen 325 mg Tablet 650 MG PO (09:41)
[2022-06-23 13:41] VITALS: BP 107/70; PULSE 88; RESP 16; TEMP 36.7; O2SAT 97
--- NOTE | 2022-06-23 15:48 | W.PM.NPUPNS ---
Subjective NPU Subjective: Patient is 46 year old with psychotic disorder NOS, currently on Invega 9 mg daily who continues to appear paranoid on the unit. Patient continued guarded on the milieu while isolating herself from the rest of the peers on the unit. The patient had reported abnormal discharge from her breast. There was evidence of hyperprolactinemia at 79. Patient continued to remain isolative on the unit. She had continued to report that she was on a mission from God and continue to report that it was unacceptable for her to discuss her past. She reported feeling better that she was having some answers regarding her medical visit. She reported no sleep disturbance. Mental Status Exam MSE Comments: This is a slender white female looking much older than her stated age in [facility] scrubs with a disheveled appearance and fleeting contact. No abnormal movements except for mild psychomotor retardation. She remained guarded on the unit today, and continued to isolate herself. Speech was normal rate and decreased volume, normal prosody. Mood described as okay today. Her affect is blunted and mood incongruent. Thought process, remained disorganized and superficial at times. Thought content: Denies suicidal or homicidal ideation, there was the presence of bizarre yazidism delusions and hyperreligiosity She denied auditory or visual hallucinations. Attention and concentration were intact and memory appeared more reliable though none were formally tested. She is alert and oriented to person and place. Insight and judgment are impaired. Impulse control is limited. Vitals/I&O/Wt Last Vital Signs Temp 98.0 F 06/23/22 13:41 Pulse 88 06/23/22 13:41 Resp 16 06/23/22 13:41 BP 107/70 06/23/22 13:41 Pulse Ox 97 06/23/22 13:41 O2 Del Method 06/23/22 13:41 O2 Flow Rate 98 06/23/22 08:00 Data NPU : 06/21/22 20:10 06/21/22 20:10 A&P Assessment and plan (1) Psychotic disorder: Status: Acute (2) Right lower quadrant abdominal tenderness: Will assess CBC, CMP, discussed with her also assessment with CT abdomen pelvis. Status: Acute (3) Bilateral nipple discharge: Possible hyperprolactinemia. Will check prolactin level. Paliperidone is atypical, but may still cause hyperprolactinemia. Consider switch of her antipsychotic, possibly to aripiprazole. Status: Acute (4) Tenderness of left axilla: Possible enlarged lymph node. She does not appear to have any wounds. We will examine with soft tissue ultrasound. Status: Acute (5) Constipation: Status: Acute (6) Hyperprolactinemia: Status: Acute (7) Psychosis: Status: Acute Plan This is a 44 year old white woman with active hyper yazidism delusions who presents on a 96 hour hold after walking to the point of severe dehydration endorsing she has been called by god and that her old life is because she has chosen to follow god and reporting delusions for the past 8 to 9 years. 1. Continue current medication.? Tapering invega, Patient given Invega sustenna 234mg IM on 06/22/22,add abilify to target hyperprolactinemia. 2. Encourage individual, group and milieu therapy 3. Continue q-15 minute check for safety 4.? Patient placed on 21-day hold. Involuntary Hold Information 96 Hour Hold: 96 Hour Involuntary Admission: Yes 96 Hour Hold Ending Date: 06/06/22 96 Hour Hold Ending Time: 02:25 Attestations NPU Medical Necessity Statement*: Inpatient hospitalization is medically necessary and the clinically appropriate intervention at this time. We will monitor medications and make changes as indicated with likely length of stay is 6-10 days. Coding Level of Care Code Established Pt Acute Chiropractic Physician for Loryg Fwd Patient Type Established History Problem Focused Exam Problem Focused Medical Decision Making Straight Forward Diagnoses Psychotic disorder F29 Right lower quadrant abdominal tenderness R10.813 Bilateral nipple discharge N64.52 Tenderness of left axilla M79.622 Constipation K59.00 Hyperprolactinemia E22.1 Psychosis F29
[2022-06-23 19:59] VITALS: BP 109/71; PULSE 96; RESP 16; TEMP 36.6; O2SAT 93
[2022-06-24 06:00] VITALS: BP 92/60; PULSE 98; RESP 18; TEMP 36.6; O2SAT 97
--- NOTE | 2022-06-24 08:38 | PC.NURSE ---
Patient Note During morning assessment, patient gave her testimony . States she is being detained for cheondoism reasons. States before she was brought in it was very hot and she was dehydrated. States her body was rejecting the water because gluttony is a sin. States God has lead her here and has a plan for her. Patient very pleasant and smiling during assessment. Did only speak about islam and God during the assessment.
[2022-06-24] MEDS: ARIPiprazole 10 mg Tablet 5 MG PO (09:16)
[2022-06-24] MEDS: paliperidone ER 3 mg Tablet PO (09:16)
[2022-06-24] MEDS: polyethylene glycol 3350 Pkt 17 gm PO (09:16)
[2022-06-24] MEDS: psyllium powder Pkt 1 PACKET PO ×2 (09:20→17:31)
[2022-06-24 13:35] VITALS: BP 91/62; PULSE 89; RESP 18; TEMP 37.1; O2SAT 96
[2022-06-24] MEDS: ibuprofen 600 mg Tablet PO (16:07)
--- NOTE | 2022-06-24 18:33 | P.NPUPN_ITS ---
Subjective NPU Subjective: Patient is 46 year old with psychotic disorder NOS, currently on Invega 3 mg daily who continues to appear paranoid on the unit. She reported no recent discharge from her breast. She had tolerated the Abilify 5 mg today without incident. She reported no side effects from medication. She continued to report that she was a mission from God. She continued to report her plans to remain in town to pay her debt to the hospital. Mental Status Exam MSE Comments: This is a slender white female looking much older than her stated age in hospital scrubs with a disheveled appearance and fleeting c ontact. No abnormal movements except for mild psychomotor retardation. She remained guarded on the unit today, and continued to isolate herself. Speech was normal rate and decreased volume, normal prosody. Mood described as good. Her affect remained blunted. Thought process was linear but superficial.. Thought content: Denies suicidal or homicidal ideation, there was the presence of bizarre congregational delusions and hyperreligiosity She denied auditory or visual hallucinations. Attention and concentration were intact and memory appeared more reliable though none were formally tested. She is alert and oriented to person and place. Insight and judgment are impaired. Impulse control is limited. Vitals/I&O/Wt Last Vital Signs Temp 98.7 F 06/24/22 13:35 Pulse 89 06/24/22 13:35 Resp 18 06/24/22 13:35 BP 91/62 06/24/22 13:35 Pulse Ox 96 06/24/22 13:35 O2 Del Method 06/24/22 13:35 O2 Flow Rate 98 06/23/22 20:00 Weight last 48 hrs Weight 57.969 kg Data NPU : 06/21/22 20:10 06/21/22 20:10 A&P Assessment and plan (1) Psychosis: Status: Acute (2) Tenderness of left axilla: Possible enlarged lymph node. She does not appear to have any wounds. We will examine with soft tissue ultrasound. Status: Acute (3) Bilateral nipple discharge: Possible hyperprolactinemia. Will check prolactin level. Paliperidone is atypical, but may still cause hyperprolactinemia. Consider switch of her antipsychotic, possibly to aripiprazole. Status: Acute (4) Right lower quadrant abdominal tenderness: Will assess CBC, CMP, discussed with her also assessment with CT abdomen pelvis. Status: Acute Plan This is a 44 year old white woman with active hyper congregational delusions who presents on a 96 hour hold after walking to the point of severe dehydration endorsing she has been called by god and that her old life is because she has chosen to follow god and reporting delusions for the past 8 to 9 years. 1. Continue current medication.? Continue? Invega? 3 mg p.o. every morning, Patient given Invega sustenna 234mg IM last week. Continue abilify 5mg in am. 2. Encourage individual, group and milieu therapy 3. Continue q-15 minute check for safety 4.? Patient placed on 21-day hold. Involuntary Hold Information 96 Hour Hold: 96 Hour Involuntary Admission: Yes 96 Hour Hold Ending Date: 06/06/22 96 Hour Hold Ending Time: 02:25 Attestations NPU Medical Necessity Statement*: Inpatient hospitalization is medically necessary and the clinically appropriate intervention at this time. We will monitor medications and make changes as indicated with likely length of stay is 6-10 days. Coding Level of Care Code Established Pt Acute Lockstitch Lining Setter for Chg Fwd Patient Type Established History Problem Focused Exam Problem Focused Medical Decision Making Straight Forward Diagnoses Psychosis F29 Tenderness of left axilla M79.622 Bilateral nipple discharge N64.52 Right lower quadrant abdominal tenderness R10.813
[2022-06-24 20:12] VITALS: BP 101/68; PULSE 99; RESP 16; TEMP 36.3; O2SAT 98
[2022-06-25] MEDS: ibuprofen 600 mg Tablet PO ×2 (07:46→17:21)
[2022-06-25] MEDS: paliperidone ER 3 mg Tablet PO (09:03)
[2022-06-25] MEDS: ARIPiprazole 10 mg Tablet 5 MG PO (09:03)
[2022-06-25] MEDS: polyethylene glycol 3350 Pkt 17 gm PO (09:03)
[2022-06-25] MEDS: psyllium powder Pkt 1 PACKET PO ×2 (09:04→17:43)
[2022-06-25 13:58] VITALS: BP 112/77; PULSE 99; RESP 18; TEMP 36.6; O2SAT 98
--- NOTE | 2022-06-25 16:24 | P.NPUPN_ITS ---
Subjective NPU Subjective: Patient is 46 year old with psychotic disorder NOS, currently on Invega 3 mg daily who continues to appear paranoid and hyperreligious on the unit. She reports no depressed mood. She had ported that she felt shaky in her legs. She reports motivation reports problems with concentration at this time. She reports that she continues to focus on what God tells her she reports that she will repay her hospital that by remaining in [place]. She reports being motivated to get a job when she leaves here. Not reported having no family or friends in [facility] and is currently homeless. She did not endorse any discharge from her breasts today. Mental Status Exam MSE Comments: This is a slender white female looking much older than her stated age in hospital scrubs with a disheveled appearance and fleeting contact. No abnormal movements except for mild psychomotor retardation. She remained guarded on the unit today, and continued to isolate herself. Speech was normal rate and decreased volume, normal prosody. Mood described as good. Her affect remained blunted. Thought process was linear but superficial.. Thought content: Denies suicidal or homicidal ideation, there was the presence of bizarre jainism delusions and hyperreligiosity She denied auditory or visual hallucinations. Attention and concentration were intact. Her memory appeared more reliable though none were formally tested. She is alert and oriented to person and place. Insight and judgment are impaired. Impulse control is limited. There was a mild resting tremor billaterally appreciated. Vitals/I&O/Wt Last Vital Signs Temp 98 F 06/25/22 13:58 Pulse 99 06/25/22 13:58 Resp 18 06/25/22 13:58 BP 112/77 06/25/22 13:58 Pulse Ox 98 06/25/22 13:58 O2 Del Method 06/25/22 13:58 O2 Flow Rate 98 06/23/22 20:00 Weight last 48 hrs Weight 57.969 kg Data NPU : 06/21/22 20:10 06/21/22 20:10 A&P Assessment and plan (1) Psychosis: Status: Acute (2) Tenderness of left axilla: Possible enlarged lymph node. She does not appear to have any wounds. We will examine with soft tissue ultrasound. Status: Acute (3) Bilateral nipple discharge: Possible hyperprolactinemia. Will check prolactin level. Paliperidone is atypical, but may still cause hyperprolactinemia. Added aripiprazole. Status: Acute (4) Right lower quadrant abdominal tenderness: Will assess CBC, CMP, discussed with her also assessment with CT abdomen pelvis. Status: Acute Plan This is a 44 year old white woman with active hyper jainism delusions who presents on a 96 hour hold after walking to the point of severe dehydration endorsing she has been called by god and that her old life is because she has chosen to follow god and reporting delusions for the past 8 to 9 years. 1. Continue current medication.? Discontinue? Invega? 3 mg p.o., Patient given Invega sustenna 234mg IM last week. Increase abilify 7.5mg in am. 2. Encourage individual, group and milieu therapy 3. Continue q-15 minute check for safety 4.? Patient placed on 21-day hold. Involuntary Hold Information 96 Hour Hold: 96 Hour Involuntary Admission: Yes 96 Hour Hold Ending Date: 06/06/22 96 Hour Hold Ending Time: 02:25 Attestations NPU Medical Necessity Statement*: Inpatient hospitalization is medically necessary and the clinically appropriate intervention at this time. We will monitor medications and make changes as indicated with likely length of stay is 6-10 days. Coding Level of Care Code Established Pt Acute Senior [employer] Sql Developer for Justen Reyes Patient Type Established History Problem Focused Exam Problem Focused Medical Decision Making Straight Forward Diagnoses Psychosis F29 Tenderness of left axilla M79.622 Bilateral nipple discharge N64.52 Right lower quadrant abdominal tenderness R10.813
[2022-06-25 21:26] VITALS: BP 94/61; PULSE 102; RESP 20; TEMP 36.8; O2SAT 98
[2022-06-26] MEDS: polyethylene glycol 3350 Pkt 17 gm PO ×2 (03:39→08:18)
[2022-06-26 06:00] VITALS: BP 99/60; PULSE 96; RESP 18; TEMP 36.4; O2SAT 97
[2022-06-26] MEDS: ibuprofen 600 mg Tablet PO ×2 (06:44→16:40)
--- NOTE | 2022-06-26 06:47 | PC.NURSE ---
medicated patient with Ibuprofen for generalized pain.
[2022-06-26] MEDS: ARIPiprazole 10 mg Tablet 7.5 MG PO (08:17)
[2022-06-26 14:00] VITALS: BP 103/67; PULSE 95; RESP 16; TEMP 36.9; O2SAT 100
--- NOTE | 2022-06-26 16:37 | P.NPUPN_ITS ---
Subjective NPU Subjective: Patient is 46 year old with psychotic disorder NOS, currently on abilify 7.5mg/Invega IM 234mg who was admitted to the NPU with significant mandaen delusions.. She reports no abnormal discharge from her breasts. She reported that she continues to have a slight tremor in her legs. She did not report any muscle stiffness. She was continuing to isolate herself on the milieu. She continued to report that she was working forwards for the future in [place] but states that she had been told by God where to go. She reports no thoughts of hurting herself or others. She has reported being hopeful about maintaining her level of devotion to God. She continues to remain somewhat guarded about her relationship with her family and states that they were sinners. Mental Status Exam MSE Comments: This is a slender white female looking much older than her stated age in hospital scrubs with a disheveled appearance and fleeting contact. No abnormal movements except for mild psychomotor retardation. She remained guarded on the unit and isolative. Her speech was normal in rate and decreased volume, normal prosody. Mood described as good. Her affect remained blunted. Thought process was linear but superficial.. Thought content: Denies suicidal or homicidal ideation, there was the presence of bizarre mandaen delusions and continued evidence of hyperreligiosity She denied a uditory or visual hallucinations. Attention and concentration were intact. Her memory appeared more reliable though none were formally tested. She is alert and oriented to person and place. Insight and judgment are impaired. Impulse control is limited. There was a mild resting tremor billaterally appreciated. Vitals/I&O/Wt Last Vital Signs Temp 98.4 F 06/26/22 14:00 Pulse 95 06/26/22 14:00 Resp 16 06/26/22 14:00 BP 103/67 06/26/22 14:00 Pulse Ox 100 06/26/22 14:00 O2 Del Method 06/26/22 06:00 O2 Flow Rate 98 06/23/22 20:00 Data NPU : 06/21/22 20:10 06/21/22 20:10 A&P Assessment and plan (1) Psychosis: Status: Acute (2) Tenderness of left axilla: Possible enlarged lymph node. She does not appear to have any wounds. We will examine with soft tissue ultrasound. Status: Acute (3) Bilateral nipple discharge: Possible hyperprolactinemia. Will check prolactin level. Paliperidone is atypical, but may still cause hyperprolactinemia. Added aripiprazole. Status: Acute (4) Right lower quadrant abdominal tenderness: Will assess CBC, CMP, discussed with her also assessment with CT abdomen pelvis. Status: Acute Plan This is a 44 year old white woman with active hyper mandaen delusions who presents on a 96 hour hold after walking to the point of severe dehydration endorsing she has been called by god and that her old life is because she has chosen to follow god and reporting delusions for the past 8 to 9 years. 1. Continue current medication.?Patient given Invega sustenna 234mg IM last week. Increase abilify 10mg in am tommorow 2. Encourage individual, group and milieu therapy 3. Continue q-15 minute check for safety 4.? Patient placed on 21-day hold. Involuntary Hold Information 96 Hour Hold: 96 Hour Involuntary Admission: Yes 96 Hour Hold Ending Date: 06/06/22 96 Hour Hold Ending Time: 02:25 Attestations NPU Medical Necessity Statement*: Inpatient hospitalization is medically necessary and the clinically appropriate intervention at this time. We will monitor medications and make changes as indicated with likely length of stay is 6-10 days. Coding Level of Care Code Established Pt Acute Newspaper Library Manager for Loryg Fwd Patient Type Established History Problem Focused Exam Problem Focused Medical Decision Making Straight Forward Diagnoses Psychosis F29 Tenderness of left axilla M79.622 Bilateral nipple discharge N64.52 Right lower quadrant abdominal tenderness R10.813
[2022-06-26] MEDS: psyllium powder Pkt 1 PACKET PO (17:48)
[2022-06-26 22:00] VITALS: BP 122/82; PULSE 92; RESP 17; TEMP 36.4; O2SAT 92
--- NOTE | 2022-06-26 23:02 | NUR.SHIFT ---
2005: pt calm and cooperative. assessment at bedside. pt reports anxiety 10/30 and denies depression/si/hi at this time. When asked if she is seeing or hearing things others don't see or hear, she said, only God, nothing else. I always hear and see God . When asked her mood, pt reports tired . pt reports bm today and reports, I'm blessed. q15 min safety checks continued in milieu
[2022-06-27] MEDS: ibuprofen 600 mg Tablet PO ×2 (05:12→14:10)
[2022-06-27 06:00] VITALS: BP 103/69; PULSE 89; RESP 15; TEMP 37; O2SAT 98
[2022-06-27] MEDS: ARIPiprazole 10 mg Tablet PO (09:10)
[2022-06-27 14:00] VITALS: BP 108/69; PULSE 94; RESP 16; TEMP 36.7; O2SAT 100
--- NOTE | 2022-06-27 16:48 | W.PM.NPUPNS ---
Subjective NPU Subjective: Patient is 46 year old with psychotic disorder NOS, currently on abilify 10mg/Invega IM 234mg who was admitted to the NPU with significant protestant delusions. She reports no abnormal discharge from her breasts. She reported that she continues to have a slight tremor in her legs. She did not report any muscle stiffness. The patient continued to have protestant preoccupation and reports that she feels that the reason that she is not able to sleep at night is because it is part of indignation . She reports that she has been willing to stay in a jail and continue to receive treatment. She reports that she continues to feel that her family has committed spiritual adultery Mental Status Exam MSE Comments: This is a slender white female looking much older than her stated age in hospital scrubs with a disheveled appearance and fleeting contact. No abnormal movements except for mild psychomotor retardation. She remained guarded on the unit and isolative. Her speech was normal in rate and decreased volume, normal prosody. Mood described as good. Her affect remained blunted. Thought process was linear. Thought content: Denies suicidal or homicidal ideation, there was the continued presence of bizarre protestant delusions and continued evidence of hyperreligiosity and ideas of persecution. She denied auditory or visual hallucinations. Attention and concentration were intact. Her memory appeared more reliable though none were formally tested. She is alert and oriented to person and place. Insight and judgment are impaired. Impulse control is limited. There was a mild resting tremor billaterally appreciated. Vitals/I&O/Wt Last Vital Signs Temp 98.1 F 06/27/22 14:00 Pulse 94 06/27/22 14:00 Resp 16 06/27/22 14:00 BP 108/69 06/27/22 14:00 Pulse Ox 100 06/27/22 14:00 O2 Del Method 06/27/22 06:00 O2 Flow Rate 98 06/23/22 20:00 Data NPU : 06/21/22 20:10 06/21/22 20:10 A&P Assessment and plan (1) Psychosis: Status: Acute (2) Tenderness of left axilla: Possible enlarged lymph node. She does not appear to have any wounds. We will examine with soft tissue ultrasound. Status: Acute (3) Bilateral nipple discharge: Possible hyperprolactinemia. Will check prolactin level. Paliperidone is atypical, but may still cause hyperprolactinemia. Added aripiprazole. Status: Acute (4) Right lower quadrant abdominal tenderness: Will assess CBC, CMP, discussed with her also assessment with CT abdomen pelvis. Status: Acute Plan This is a 44 year old white woman with active hyper protestant delusions who presents on a 96 hour hold after walking to the point of severe dehydration endorsing she has been called by god and that her old life is because she has chosen to follow god and reporting delusions for the past 8 to 9 years. 1. Continue current medication.?Patient given Invega sustenna 234mg IM last week. Continue abilify 10mg in am. 2. Encourage individual, group and milieu therapy 3. Continue q-15 minute check for safety 4.? Patient placed on 21-day hold. Involuntary Hold Information 96 Hour Hold: 96 Hour Involuntary Admission: Yes 96 Hour Hold Ending Date: 06/06/22 96 Hour Hold Ending Time: 02:25 Attestations NPU Medical Necessity Statement*: Inpatient hospitalization is medically necessary and the clinically appropriate intervention at this time. We will monitor medications and make changes as indicated with likely length of stay is 3-7 days. Coding Level of Care Code Established Pt Acute Insurance Rater for Loryg Fwd Patient Type Established History Problem Focused Exam Problem Focused Medical Decision Making Straight Forward Diagnoses Psychosis F29 Tenderness of left axilla M79.622 Bilateral nipple discharge N64.52 Right lower quadrant abdominal tenderness R10.813
[2022-06-27 19:55] VITALS: BP 104/64; PULSE 100; RESP 20; O2SAT 99
[2022-06-28 06:00] VITALS: BP 89/59; PULSE 110; RESP 14; TEMP 36.5; O2SAT 97
[2022-06-28] MEDS: ARIPiprazole 10 mg Tablet PO (08:57)
--- NOTE | 2022-06-28 08:57 | PC.NURSE ---
refused scheduled metamucil and miralax this morning
--- NOTE | 2022-06-28 10:47 | PC.NURSE ---
Nursing Assessment Patient calmly sitting on bed, reading. She states she did not sleep well, but rested because she was anxious. She denies any visual hallucinations, but states she does have auditory hallucinations and hears God talking to her. Patient denied any homicidal or suicidal ideations. States she has a small amount of anxiety this morning and is scheduled to take her abilify this morning. Before I left the room the patient asked nicely that I ask before I sit down because I am defiling the space, but that she would talk to God about it this time and it would be okay.
--- NOTE | 2022-06-28 11:36 | P.NPUPN_ITS ---
Subjective NPU Subjective: Patient presents today reporting that she is doing better. We reviewed her plans for the future. She agreed that our pursuit of a 90-day hold which will likely only last about a week as we dot the i's and cross the t's from the standpoint housing, establishing providers especially given the need for long-acting injection. We discussed that she will get her second Invega injection tomorrow and likely be discharged within the week. We discussed that she is taking both Abilify and Invega with very positive results and concerns about her suggesting to the nurses otherwise as she continued to be resistant to having to take medication. Mental Status Exam MSE Comments: This is a slender white female looking older than her stated age in hospital scrubs with improved grooming and eye contact. No abnormal movements except for mild psychomotor retardation. She remained guarded on the unit and isolative. Her speech was normal in rate and decreased volume, normal prosody. Mood described as good. Her affect remained blunted. Thought process was more organized. Thought content: Denies suicidal or homicidal ideation, there was the continued presence of bizarre congregation delusions and continued evidence of hyperreligiosity and ideas of persecution. She denied auditory or visual fabian ucinations. Attention and concentration were intact. Her memory appeared more reliable though none were formally tested. She is alert and oriented to person and place. Insight and judgment are impaired. Impulse control is limited. There was a mild resting tremor billaterally appreciated. Vitals/I&O/Wt Last Vital Signs Temp 97.7 F 06/28/22 06:00 Pulse 110 H 06/28/22 06:00 Resp 14 06/28/22 06:00 BP 89/59 06/28/22 06:00 Pulse Ox 97 06/28/22 06:00 O2 Del Method 06/27/22 06:00 O2 Flow Rate 98 06/27/22 20:00 Data NPU : 06/21/22 20:10 06/21/22 20:10 A&P Assessment and plan (1) Psychosis: Status: Acute (2) Tenderness of left axilla: Possible enlarged lymph node. She does not appear to have any wounds. We will examine with soft tissue ultrasound. Status: Acute (3) Bilateral nipple discharge: Possible hyperprolactinemia. Will check prolactin level. Paliperidone is atypical, but may still cause hyperprolactinemia. Added aripiprazole. Status: Acute (4) Right lower quadrant abdominal tenderness: Will assess CBC, CMP, discussed with her also assessment with CT abdomen pelvis. Status: Acute Plan This is a 44 year old white woman with active hyper congregation delusions who presents on a 96 hour hold after walking to the point of severe dehydration endorsing she has been called by god and that her old life is because she has chosen to follow god and reporting delusions for the past 8 to 9 years. 1. Continue current medication.?Patient given Invega sustenna 234mg IM last week 156 mg IM to the deltoid tomorrow. Continue abilify 10mg in am. 2. Encourage individual, group and milieu therapy 3. Continue q-15 minute check for safety 4.? Filed 90 day hold paperwork. Involuntary Hold Information 96 Hour Hold: 96 Hour Involuntary Admission: Yes 96 Hour Hold Ending Date: 06/06/22 96 Hour Hold Ending Time: 02:25 Attestations NPU Medical Necessity Statement*: Inpatient hospitalization is medically necessary and the clinically appropriate intervention at this time. We will monitor me dications and make changes as indicated with likely length of stay is 3-7 days. Coding Level of Care Code Acute Social Services Manager for Loryg Fwd Diagnoses Psychosis F29 Tenderness of left axilla M79.622 Bilateral nipple discharge N64.52 Right lower quadrant abdominal tenderness R10.813
[2022-06-28 14:00] VITALS: BP 101/67; PULSE 98; RESP 16; TEMP 36.4; O2SAT 98
[2022-06-28] MEDS: psyllium powder Pkt 1 PACKET PO (16:17)
[2022-06-28] MEDS: ibuprofen 600 mg Tablet PO (16:47)
[2022-06-28 21:35] VITALS: RESP 14
[2022-06-29 06:00] VITALS: BP 97/65; PULSE 90; RESP 16; TEMP 36.8; O2SAT 99
[2022-06-29] MEDS: ibuprofen 600 mg Tablet PO ×2 (08:34→16:58)
[2022-06-29] MEDS: ARIPiprazole 10 mg Tablet PO (08:34)
[2022-06-29] MEDS: psyllium powder Pkt 1 PACKET PO (08:35)
--- NOTE | 2022-06-29 08:35 | PC.NURSE ---
REFUSED SCHEDULED MIRALAX
[2022-06-29 14:00] VITALS: BP 107/72; PULSE 81; RESP 16; O2SAT 98
--- NOTE | 2022-06-29 17:19 | P.NPUPN_ITS ---
Subjective NPU Subjective: Patient presented today reporting that she has lined up all of her discharge plans. We discussed her follow-up at [facility] and she had hoped that Dr. Arriaga would be able to be her outpatient doctor but remained at he only does inpatient at this point. We discussed the fact that she is scheduled to get her second dose of the shot today and she did not express a problem with that plan. We discussed the fact that he had not heard about a 90-day hold here date but at this point it is our estimation that she will be on the hospital next week if everything is lined up which made her happy. Mental Status Exam MSE Comments: This is a slender white female looking older than her stated age in hospital scrubs with improved grooming and eye contact. No abnormal movements except for mild psychomotor retardation. She remained guarded on the unit and isolative. Her speech was normal in rate and decreased volume, normal prosody. Mood described as good. Her affect remained blunted. Thought process was more organized. Thought content: Denies suicidal or homicidal ideation, there was the continued presence of bizarre druze delusions and continued evidence of hyperreligiosity and ideas of persecution, however these things are below the surface and can only be exposed with probing. She denied auditory or visual hallucinations. Attention and concentration were intact. Her memory appeared more reliable though none were formally tested. She is alert and oriented to person and place. Insight and judgment are impaired. Impulse control is limited. There was a mild resting tremor billaterally appreciated. Vitals/I&O/Wt Last Vital Signs Temp 98.2 F 06/29/22 22:00 Pulse 83 06/29/22 22:00 Resp 16 06/29/22 22:00 BP 103/62 06/29/22 22:00 Pulse Ox 97 06/29/22 22:00 O2 Del Method 06/29/22 22:00 O2 Flow Rate 98 06/29/22 08:39 Data NPU : 06/21/22 20:10 06/21/22 20:10 A&P Assessment and plan (1) Psychosis: Status: Acute (2) Tenderness of left axilla: Possible enlarged lymph node. She does not appear to have any wounds. We will examine with soft tissue ultrasound. Status: Acute (3) Bilateral nipple discharge: Possible hyperprolactinemia. Will check prolactin level. Paliperidone is atyp ical, but may still cause hyperprolactinemia. Added aripiprazole. Status: Acute (4) Right lower quadrant abdominal tenderness: Will assess CBC, CMP, discussed with her also assessment with CT abdomen pelvis. Status: Acute Plan This is a 44 year old white woman with active hyper druze delusions who presents on a 96 hour hold after walking to the point of severe dehydration endorsing she has been called by god and that her old life is because she has chosen to follow god and reporting delusions for the past 8 to 9 years. 1. Continue current medication.?Patient given Invega sustenna 234mg IM last w [place] [facility] [place] 156 mg IM to the deltoid today. Continue abilify 10mg in am. 2. Encourage individual, group and milieu therapy 3. Continue q-15 minute check for safety 4.? Filed 90 day hold paperwork. Involuntary Hold Information 96 Hour Hold: 96 Hour Involuntary Admission: Yes 96 Hour Hold Ending Date: 06/06/22 96 Hour Hold Ending Time: 02:25 Attestations NPU Medical Necessity Statement*: Inpatient hospitalization is medically necessary and the clinically appropriate intervention at this time. We will monitor medications and make changes as indicated with likely length of stay is 3-7 d ays. Coding Level of Care Code Acute Press Operator Helper for Chg Fwd Diagnoses Psychosis F29 Tenderness of left axilla M79.622 Bilateral nipple discharge N64.52 Right lower quadrant abdominal tenderness R10.813
[2022-06-29] MEDS: paliperidone palmitate 156 mg Syringe IM (18:14)
--- NOTE | 2022-06-29 18:14 | PC.NURSE ---
PRN INVEGA SUSTENNA 156 MG GIVEN IM ORDERED BY PHYSICIAN, TOOK SHOT WILLINGLY. LOT [id number] EXP
[2022-06-29 22:00] VITALS: BP 103/62; PULSE 83; RESP 16; TEMP 36.8; O2SAT 97
[2022-06-30] MEDS: psyllium powder Pkt 1 PACKET PO (01:10)
[2022-06-30] MEDS: ibuprofen 600 mg Tablet PO ×2 (01:10→07:48)
[2022-06-30 06:00] VITALS: BP 94/65; PULSE 90; RESP 18; TEMP 36.4; O2SAT 97
--- NOTE | 2022-06-30 07:10 | P.NPUPN_ITS ---
Subjective NPU Subjective: Patient presents today reporting that she is feeling optimistic about the possibility of discharging next week. She talked about some of the things that she needs to do prior to affectively managing her self out of the hospital. We talked about where she would be getting her injections and she reported that she would not have any problems or side effects from medications. Mental Status Exam MSE Comments: This is a slender white female looking older than her stated age in hospital scrubs with improved grooming and eye contact. No abnormal movements except for mild psychomotor retardation. She remained guarded on the unit and isolative. Her speech was normal in rate and decreased volume, normal prosody. Mood described as good. Her affect remained blunted. Thought process was more organized. Thought content: Denies suicidal or homicidal ideation, there was the continued presence of bizarre mandaeism delusions and continued evidence of hyperreligiosity and ideas of persecution, however these things are below the surface and can only be exposed with probing. She denied auditory or visual hallucinations. Attention and concentration were intact. Her memory appeared more reliable though none were formally tested. She is alert and oriented to person and place. Insight and judgment are impaired. Impulse control is limited. There was a mild resting tremor billaterally appreciated. Vitals/I&O/Wt Last Vital Signs Temp 97.6 F 06/30/22 06:00 Pulse 90 06/30/22 06:00 Resp 18 06/30/22 06:00 BP 94/65 06/30/22 06:00 Pulse Ox 97 06/30/22 06:00 O2 Del Method 06/30/22 06:00 O2 Flow Rate 98 06/29/22 08:39 Data NPU : 06/21/22 20:10 06/21/22 20:10 A&P Assessment and plan (1) Psychosis: Status: Acute (2) Tenderness of left axilla: Possible enlarged lymph node. She does not appear to have any wounds. We will examine with soft tissue ultrasound. Status: Acute (3) Bilateral nipple discharge: Possible hyperprolactinemia. Will check prolactin level. Paliperidone is atypical, but may still cause hyperprolactinemia. Added aripiprazole. Status: Acute (4) Right lower quadrant abdominal tenderness: Will assess CBC, CMP, discussed with her also assessment with CT abdomen pelvis. Status: Acute Plan This is a 44 year old white woman with active hyper mandaeism delusions who presents on a 96 hour hold after walking to the point of severe dehydration endorsing she has been called by god and that her old life is because she has chosen to follow god and reporting delusions for the past 8 to 9 years. 1. Continue current medication.?Patient given Invega sustenna 234mg IM last week and 156 mg IM to the deltoid 06/29/22. Continue abilify 10mg in am. 2. Encourage individual, group and milieu therapy 3. Continue q-15 minute check for safety 4.? Filed 90 day hold paperwork. Involuntary Hold Information 96 Hour Hold: 96 Hour Involuntary Admission: Yes 96 Hour Hold Ending Date: 06/06/22 96 Hour Hold Ending Time: 02:25 Attestations NPU Medical Necessity Statement*: Inpatient hospitalization is medically necessary and the clinically appropriate intervention at this time. We will monitor medications and make changes as indicated with likely length of stay is 3-7 days. Coding Level of Care Code Acute Can Coverer for Justen Reyes Diagnoses Psychosis F29 Tenderness of left axilla M79.622 Bilateral nipple discharge N64.52 Right lower quadrant abdominal tenderness R10.813
[2022-06-30] MEDS: ARIPiprazole 10 mg Tablet PO (09:06)
[2022-06-30 14:00] VITALS: BP 98/67; PULSE 99; RESP 16; TEMP 36.9; O2SAT 99
[2022-06-30] MEDS: polyethylene glycol 3350 Pkt 17 gm PO (14:49)
[2022-06-30 19:57] VITALS: BP 103/68; PULSE 129; RESP 16; TEMP 36.4; O2SAT 99
--- NOTE | 2022-06-30 21:29 | PC.NURSE ---
refused scheduled metamucil.
[2022-07-01] MEDS: ibuprofen 600 mg Tablet PO ×2 (00:45→12:05)
[2022-07-01 06:00] VITALS: BP 103/70; PULSE 92; RESP 18; TEMP 36.5; O2SAT 97; BMI 21.4
[2022-07-01] MEDS: ARIPiprazole 10 mg Tablet PO (08:37)
[2022-07-01] MEDS: polyethylene glycol 3350 Pkt 17 gm PO (08:37)
--- NOTE | 2022-07-01 08:48 | PC.NURSE ---
Pt requested that her soiled laundry be washed, gathered the laundry in a mess bag and sent to laundry services, tagged with pt's name and unit.
--- NOTE | 2022-07-01 12:45 | P.NPUPN_ITS ---
Subjective NPU Subjective: Patient presents today continuing to be goal-directed. We continue to discuss a plan to discharge the neck 72 hours most likely if all follow-up arrangements can be made to support her continued convalescence. Otherwise she continued to be isolative and reporting that by being in her room she felt to be more healthy though she was more able but still having some of these bizarre quirks and thinking. Mental Status Exam MSE Comments: This is a slender white female looking older than her stated age in hospital scrubs with improved grooming and eye contact. No abnormal movements except for mild psychomotor retardation. She remained guarded on the unit and isolative. Her speech was normal in rate and decreased volume, normal prosody. Mood described as good. Her affect remained blunted, but improving. Thought process was more organized. Thought content: Denies suicidal or homicidal i deation, there was the continued presence of bizarre taoist and somatic/health delusions and continued evidence of hyperreligiosity and ideas of persecution, however these things are below the surface and can only be exposed with probing. She denied auditory or visual hallucinations. Attention and concentration were intact. Her memory appeared more reliable though none were formally tested. She is alert and oriented to person and place. Insight and judgment are impaired. Impulse control is limited. There was a mild resting tremor billaterally appreciated. Vitals/I&O/Wt Last Vital Signs Temp 97.7 F 07/01/22 06:00 Pulse 92 07/01/22 06:00 Resp 18 07/01/22 06:00 BP 103/70 07/01/22 06:00 Pulse Ox 97 07/01/22 06:00 O2 Del Method 07/01/22 06:00 O2 Flow Rate 98 07/01/22 08:00 Weight last 48 hrs Weight 58.287 kg Data NPU : 06/21/22 20:10 06/21/22 20:10 A&P Assessment and plan (1) Psychosis: Status: Acute (2) Tenderness of left axilla: Possible enlarged lymph node. She does not appear to have any wounds. We will examine with soft tissue ultrasound. Status: Acute (3) Bilateral nipple discharge: Possible hyperprolactinemia. Will check prolactin level. Paliperidone is atypical, but may still cause hyperprolactinemia. Added aripiprazole. Status: Acute (4) Right lower quadrant abdominal tenderness: Will assess CBC, CMP, discussed with her also assessment with CT abdomen pelvis. Status: Acute Plan This is a 44 year old white woman with active hyper taoist delusions who presents on a 96 hour hold after walking to the point of severe dehydration e ndorsing she has been called by god and that her old life is because she has chosen to follow god and reporting delusions for the past 8 to 9 years. 1. Continue current medication.?Patient given Invega sustenna 234mg IM last week and 156 mg IM to the deltoid 06/29/22. Continue abilify 10mg in am. 2. Encourage individual, group and milieu therapy 3. Continue q-15 minute check for safety 4.? Filed 90 day hold paperwork. Involuntary Hold Information 96 Hour Hold: 96 Hour Involuntary Admission: Yes 96 Hour Hold Ending Date: 06/06/22 96 Hour Hold Ending Time: 02:25 Attestations NPU Medical Necessity Statement*: Inpatient hospitalization is medically necessary and the clinically appropriate intervention at this time. We will monitor medications and make changes as indicated with likely length of stay is 2- 5 days. Coding Level of Care Code Acute Orchard Worker for Chg Fwd Diagnoses Psychosis F29 Tenderness of left axilla M79.622 Bilateral nipple discharge N64.52 Right lower quadrant abdominal tenderness R10.813
[2022-07-01 14:00] VITALS: BP 102/68; PULSE 99; RESP 18; TEMP 36.4; O2SAT 98
[2022-07-01 20:10] VITALS: BP 108/75; PULSE 98; RESP 16; TEMP 36.7; O2SAT 99
[2022-07-02] MEDS: ibuprofen 600 mg Tablet PO ×2 (00:20→13:09)
[2022-07-02] MEDS: efferdent effervescent 1 EACH DENTAL (05:31)
[2022-07-02 06:00] VITALS: BP 101/70; PULSE 75; RESP 20; TEMP 36.5; O2SAT 99
[2022-07-02] MEDS: ARIPiprazole 10 mg Tablet PO (08:15)
--- NOTE | 2022-07-02 08:15 | PC.NURSE ---
refused scheduled Miralax and Metamucil
[2022-07-02 14:00] VITALS: BP 112/76; PULSE 97; RESP 17; TEMP 36.7; O2SAT 98
[2022-07-02] MEDS: polyethylene glycol 3350 Pkt 17 gm PO (16:40)
--- NOTE | 2022-07-02 17:02 | P.NPUPN_ITS ---
Subjective NPU Subjective: Patient presents today reporting that she is feeling optimistic about bleeding in the next 48 hours. We discussed our concerns that at this point there seems really to ensure that she gets a immigration case manager in a timely fashion. We discussed concerns about her navigating the system and getting her shots and everything else without help in place. We also discussed the 90-day hold hearing that is possibly tomorrow and possible related to have her stay for couple more days and not have the hearing. She was open to the discussion. She continues to be isolative, often staying in her room and being very conscientious about her food. Only eating in her room. Mental Status Exam MSE Comments: This is a slender white female looking older than her stated age in hospital scrubs with improved grooming and eye contact. No abnormal movements except for mild psychomotor retardation. She remained guarded on the unit and isolative. Her speech was normal in rate and decreased volume, normal prosody. Mood described as good. Her affect remained blunted, but improving. Thought process was more organized. Thought content: Denies suicidal or homicidal ideation, there was the continued presence of bizarre shinto and somatic/health delusions and continued evidence of hyperreligiosity and ideas of persecution, however these things are below the surface and can only be exposed with probing. She denied auditory or visual hallucinations. Attention and concentration were intact. Her memory appeared more reliable though none were formally tested. She is alert and oriented to person and place. Insight and judgment are impaired. Impulse control is limited. There was a mild resting tremor billaterally appreciated. Vitals/I&O/Wt Last Vital Signs Temp 98.1 F 07/02/22 14:00 Pulse 97 07/02/22 14:00 Resp 17 07/02/22 14:00 BP 112/76 07/02/22 14:00 Pulse Ox 98 07/02/22 14:00 O2 Del Method 07/02/22 14:00 O2 Flow Rate 98 07/02/22 07:45 Weight last 48 hrs Weight 58.287 kg Data NPU : 06/21/22 20:10 06/21/22 20:10 A&P Assessment and plan (1) Psychosis: Status: Acute (2) Tenderness of left axilla: Possible enlarged lymph node. She does not appear to have any wounds. We will examine with soft tissue ultrasound. Status: Acute (3) Bilateral nipple discharge: Possible hyperprolactinemia. Will check prolactin level. Paliperidone is atypical, but may still cause hyperprolactinemia. Added aripiprazole. Status: Acute (4) Right lower quadrant abdominal tenderness: Will assess CBC, CMP, discussed with her also assessment with CT abdomen pelvis. Status: Acute Plan This is a 44 year old white woman with active hyper shinto delusions who presents on a 96 hour hold after walking to the point of severe dehydration endorsing she has been called by god and that her old life is because she has chosen to follow god and reporting delusions for the past 8 to 9 years. 1. Continue current medication.?Patient given Invega sustenna 234mg IM last week and 156 mg IM to the deltoid 06/29/22. Continue abilify 10mg in am. 2. Encourage individual, group and milieu therapy 3. Continue q-15 minute check for safety 4.? 90-day hearing tomorrow. Considering not going. We we will challenge her to eat in the general population the last 2 days is assigned to able to navigate that. Involuntary Hold Information 96 Hour Hold: 96 Hour Involuntary Admission: Yes 96 Hour Hold Ending Date: 06/06/22 96 Hour Hold Ending Time: 02:25 Attestations NPU Medical Necessity Statement*: Inpatient hospitalization is medically necessary and the clinically appropriate intervention at this time. We will monitor medications and make changes as indicated with likely length of stay is 2- 4 days. Coding Level of Care Code Acute Classified Ad Taker for Justen Reyes Diagnoses Psychosis F29 Tenderness of left axilla M79.622 Bilateral nipple discharge N64.52 Right lower quadrant abdominal tenderness R10.813
[2022-07-02 20:15] VITALS: BP 102/68; PULSE 95; RESP 16; TEMP 36.8; O2SAT 99
[2022-07-03] MEDS: ibuprofen 600 mg Tablet PO ×2 (02:13→17:57)
[2022-07-03] MEDS: efferdent effervescent 1 EACH DENTAL ×2 (02:13→17:58)
--- NOTE | 2022-07-03 02:56 | PC.NURSE ---
Medicated patient with Ibuprofen 600 mg for neck pain.
[2022-07-03] MEDS: psyllium powder Pkt 1 PACKET PO ×2 (05:53→20:08)
[2022-07-03 06:00] VITALS: BP 108/77; PULSE 83; RESP 16; O2SAT 98
[2022-07-03] MEDS: ARIPiprazole 10 mg Tablet PO (08:02)
[2022-07-03 14:00] VITALS: BP 113/76; PULSE 88; RESP 16; TEMP 36.6; O2SAT 100
--- NOTE | 2022-07-03 15:53 | W.PM.NPUPNS ---
Subjective NPU Subjective: Patient presents today having met with staff at [facility]. We discussed the plan for her to go to [facility] with visions of more supportive independent residential settings. We discussed follow-up planning and the importance of her continuing her medication after discharge. She reported that things that she is working on to continue to better self and move towards stability. We discussed a plan for discharge in the morning. Mental Status Exam MSE Comments: This is a slender white female looking older than her stated age in hospital scrubs with improved grooming and eye contact. No abnormal movements except for mild psychomotor retardation. She remained guarded on the unit and isolative. Her speech was normal in rate and decreased volume, normal prosody. Mood described as good. Her affect remained blunted, but improving. Thought process was more organized. Thought content: Denies suicidal or homicidal ideation, there was the continued presence of bizarre baptism and somatic/health delusions and continued evidence of hyperreligiosity and ideas of persecution, however these things are below the surface and can usually only be exposed with probing. She denied auditory or visual hallucinations. Attention and concentration were intact. Her memory appeared more reliable though none were formally tested. She is alert and oriented to person and place. Insight and judgment are impaired. Impulse control is limited. There was a mild resting tremor billaterally appreciated. Vitals/I&O/Wt Last Vital Signs Temp 97.8 F 07/03/22 14:00 Pulse 88 07/03/22 14:00 Resp 16 07/03/22 14:00 BP 113/76 07/03/22 14:00 Pulse Ox 100 07/03/22 14:00 O2 Del Method 07/03/22 14:00 O2 Flow Rate 98 07/02/22 07:45 Data NPU : 06/21/22 20:10 06/21/22 20:10 A&P Assessment and plan (1) Psychosis: Status: Acute (2) Tenderness of left axilla: Possible enlarged lymph node. She does not appear to have any wounds. We will examine with soft tissue ultrasound. Status: Acute (3) Bilateral nipple discharge: Possible hyperprolactinemia. Will check prolactin level. Paliperidone is atypical, but may still cause hyperprolactinemia. Added aripiprazole. Status: Acute (4) Right lower quadrant abdominal tenderness: Will assess CBC, CMP, discussed with her also assessment with CT abdomen pelvis. Status: Acute Plan This is a 44 year old white woman with active hyper baptism delusions who presents on a 96 hour hold after walking to the point of severe dehydration endorsing she has been called by god and that her old life is because she has chosen to follow god and reporting delusions for the past 8 to 9 years. 1. Continue current medication.?Patient given Invega sustenna 234mg IM last week and 156 mg IM to the deltoid 06/29/22. Continue abilify 10mg in am. 2. Encourage individual, group and milieu therapy 3. Continue q-15 minute check for safety 4.? We will forego the 90-day hold hearing. Plan to discharge the morning with significant community supports in place. Involuntary Hold Information 96 Hour Hold: 96 Hour Involuntary Admission: Yes 96 Hour Hold Ending Date: 06/06/22 96 Hour Hold Ending Time: 02:25 Attestations NPU Medical Necessity Statement*: Inpatient hospitalization is medically necessary and the clinically appropriate intervention at this time. We will monitor medications and make changes as indicated with likely discharge in the morning. Coding Level of Care Code Acute Optical Coating Technician for Justen Fwd Diagnoses Psychosis F29 Tenderness of left axilla M79.622 Bilateral nipple discharge N64.52 Right lower quadrant abdominal tenderness R10.813
[2022-07-03 21:08] VITALS: BP 94/67; PULSE 93; RESP 18; TEMP 36.8; O2SAT 97
[2022-07-04] MEDS: ibuprofen 600 mg Tablet PO ×2 (00:32→07:01)
[2022-07-04 06:00] VITALS: BP 96/68; PULSE 81; RESP 18; TEMP 36.1; O2SAT 97
[2022-07-04] MEDS: polyethylene glycol 3350 Pkt 17 gm PO (08:04)
[2022-07-04] MEDS: ARIPiprazole 10 mg Tablet PO (08:04)
[2022-07-04] MEDS: psyllium powder Pkt 1 PACKET PO (08:04)
--- NOTE | 2022-07-04 11:38 | W.PM.NPUDCS ---
Diagnoses at Discharge Discharge Diagnosis (1) Psychosis: Status: Acute (2) Tenderness of left axilla: Status: Acute (3) Bilateral nipple discharge: Status: Acute (4) Right lower quadrant abdominal tenderness: Status: Acute Reason for Visit Reason for Visit: SI Brief History: History of Present Illness Christine Hurst is a 46 year old female who presented to an outside hospital, which reported that she was picked up by the [facility] patrol who dropped her off in a [employer] in [place], [place]. She walked to an [employer] zone and reportedly climbed one mountain then another mountain. She had seen a [employer] and went there to get water where she noticed her urine was dark. At the top of the second mountain, she met a man and asked him to call 911 because she was dehydrated. She reports the spirit leads her in the direction she needs to go. She believes she is going through the wrath of God and stated she has left her old life behind because it ?has perished?. She said things like she drank a cup of wrath to kill her out, that her father was a silvina and she was being judged because of him and that her was not holy. She stated that her family are her enemies and she does not associate with them because they are only holy on holidays and she could not bring them to her because she has . They evaluated her and put her on a 96 hour hold and she was transferred to [facility] and admitted to the neuropsychiatric unit for definitive treatment of those issues. She presents today reporting she is not currently on any medications. She had presented to the outside hospital where she was severely dehydrated and was being admitted for observation but they later came to get her belongs at which point she found out she was in a gown that indicated she was a harm to herself or others. She reports she did not understand why she had been put into the gown and endorsed everything was ?in God?s testimony? in regards to questions of how she presented. She reports that ?god called the old person that she was? in reference to herself in third person and when asked why she was referring to herself in third person, she stated ?we have to stay in god?s testimony?. She endorses god is coming to her now and she has to wait for him to give the words to this typewriter tester. She has been psychiatrically hospitalized once previously a year ago in [place] and was told by the bank officer then it was due to her financial issues. She has never had outpatient services and endorsed once again that her journey has been prophesized in the bible. She had reports that prior to being taken the outside hospital she had expressed wanting to go to a [facility] hospital as she was a part of that [employer] group. She reported that she has not been on medications in this lifetime but also was endorsing that the wrath of god can give someone another lifetime to live. She denies tobacco, alcohol, marijuana or any other illicit drug use. She has never had drug and alcohol treatment or drug and alcohol charges. She reports she has been experiencing heightened spirituality for 8 to 9 years at this point and has been speaking with god directly and endorses while she is waiting for him to speak with her, she is battling Minerva who talks to her as well which is why she pauses throughout the interview. She endorses feeling pressured into the secular world. She reports that due to her life perishing in [facility] she does not have her history anymore and elaborated that her life is like the second book of [employer] and that ?her friends and family were against her as she was against god?. She reports she is being lead out of [facility] to the [facility] and that no one know her besides god.? Psychiatric History: As above. Substance Abuse History: As above. Family History: She refused to answer questions that relate to her family or her personal history prior to being called by god as she endorses her old life is gone. Developmental History: She refused to answer questions that relate to her family or her personal history prior to being called by god as she endorses her old life is gone. Psychosocial History: She refused to answer questions that relate to her family or her personal history prior to being called by god as she endorses her old life is gone. She did report having been previously. Legal History: She refused to answer questions that relate to her family or her personal history prior to being called by god as she endorses her old life is gone. Medical History: She is allergic to penicillin and possibly other medications she could not recall. Hospital Course Hospital Course She very slowly acclimated to the individual, group and milieu therapies provided.? She was extremely religiously preoccupied often endorsing seeing demons and people that she did not like or want to be around. She isolated herself and was suspicious of food. Eventually she was placed on a 21-day hold which led to forced medication and her being started on Invega. She eventually got the Invega Sustenna loading injections prior to discharge. She had significant improvement but still had lingering delusions. Significant work was done by the treatment team to get her resources prior to discharge she never would allow us to contact family. She was able to contract for safety outside of the hospital prior to discharge.? During the hospitalization, patient had routine laboratory studies which were within normal limits except for few outliers.? Additionally there was a general medical evaluation which was also within normal limits and revealed no new acute processes. Discharge Summary: At the time of discharge, she denied lethality and psychosis was resolving.? Mood and anxiety were well managed.? Patient endorsed a plan to avoid all drugs of abuse and follow-up with the aftercare recommendations of the treatment team.? Patient was evaluated and deemed to be absent credible lethality, and had achieved the maximum benefit from an inpatient hospitalization, so was discharged. Involuntary Hold Information 96 Hour Hold: 96 Hour Involuntary Admission: Yes 96 Hour Hold Ending Date: 06/06/22 96 Hour Hold Ending Time: 02:25 Mental Status Exam MSE Comments: This is a slender white female looking older than her stated age in hospital scrubs with improved grooming and eye contact. No abnormal movements except for mild psychomotor retardation. She remained guarded on the unit and isolative. Her speech was normal in rate and decreased volume, normal prosody. Mood described as good. Her affect remained blunted, but improving. Thought process was more organized. Thought content: Denies suicidal or homicidal ideation, there was the continued presence of bizarre presybeterian and somatic/health delusions and continued evidence of hyperreligiosity and ideas of persecution, however these things are below the surface and can usually only be exposed with probing. She denied auditory or visual hallucinations. Attention and concentration were intact. Her memory appeared more reliable though none were formally tested. She is alert and oriented to person and place. Insight and judgment are impaired. Impulse control is limited. There was a mild resting tremor billaterally appreciated. Discharge Data Studies Completed and Pending: Completed Studies During Hospitalization Category Date Time Status CT abdomen pelvis wo con 55052 Rout ine Cat Scan 06/21/22 18:48 Completed US soft tissue/ex tremity 32888 Rout ine Ultrasound 06/21/22 18:48 Completed Radiology Impressions Abdomen/Pelvis CT 06/21/22 18:48 IMPRESSION: No acute abnormality is seen in the abdomen or pelvis. The appendix is normal. Possible constipation. Soft Tissue Ultrasound 06/21/22 18:48 IMPRESSION: Negative ultrasound LEFT axilla. Laboratory Results WBC 7.7 10^3/uL (4.0- 10.0) 06/21/22 20:10 RBC 3.86 10^6/uL (4.1 -5.3) L 06/21/22 20:10 Hgb 11.6 g/dL (11.5-1 5.3) 06/21/22 20:10 Hct 35.6 % (37.0-47.0 ) L 06/21/22 20:10 MCV 92.2 fl (81-99) 06/21/22 20:10 MCH 30.1 pg (28.0-34. 0) 06/21/22 20:10 MCHC 32.6 g/dL (30.0-3 6.0) 06/21/22 20:10 RDW 13.1 % (12.1-15.1 ) 06/21/22 20:10 Plt Count 199 10^3/cmm (130 -400) 06/21/22 20:10 MPV 11.5 fL (7.4-10.4 ) H 06/21/22 20:10 Neut % (Auto) 58.8 % 06/21/22 20:10 Lymph % (Auto) 29.7 % 06/21/22 20:10 Garden % (Auto) 9.2 % 06/21/22 20:10 Eos % (Auto) 1.3 % 06/21/22 20:10 Baso % (Auto) 0.6 % 06/21/22 20:10 Neut # (Auto) 4.54 10^3/uL (1.8 -7.7) 06/21/22 20:10 Lymph # (Auto) 2.3 10^3/uL (0.8- 4.8) 06/21/22 20:10 Garden # (Auto) 0.7 10^3/uL (0.2- 0.9) 06/21/22 20:10 Eos # (Auto) 0.1 10^3/uL (0.0- 0.8) 06/21/22 20:10 Baso # (Auto) 0.1 10^3/uL (0.0- 0.1) 06/21/22 20:10 Nucleated RBC % (a uto) 0 % 06/21/22 20:10 Nucleated RBCs # 0.0 /100WBC 06/21/22 20:10 Sodium 138 mmol/L (136-1 45) 06/21/22 20:10 Potassium 4.1 mmol/L (3.5-5 .1) 06/21/22 20:10 Chloride 101 mmol/L (98-10 7) 06/21/22 20:10 Carbon Dioxide 26 mmol/L (22-29) 06/21/22 20:10 Anion Gap 15.1 (5-19) 06/21/22 20:10 BUN 20 mg/dL (6-20) 06/21/22 20:10 Creatinine 0.8 mg/dL (0.5-0. 9) 06/21/22 20:10 GFR Calculation 77.2 mL/min (90-1 30) L 06/21/22 20:10 Glucose 106 mg/dL (65-115 ) 06/21/22 20:10 Calculated Osmolal ity 289 mOsm/kg (285- 295) 06/21/22 20:10 Calcium 9.4 mg/dL (8.5-10 .5) 06/21/22 20:10 Total Bilirubin 0.2 mg/dL (0.15-1 .2) 06/21/22 20:10 AST 16 U/L (0-32) 06/21/22 20:10 ALT 15 U/L (0-33) 06/21/22 20:10 Alkaline Phosphata se 106 U/L (35-105) H 06/21/22 20:10 Total Protein 6.5 g/dL (6.6-8.7 ) L 06/21/22 20:10 Albumin 4.3 g/dL (3.5-5.2 ) 06/21/22 20:10 Globulin 2.2 g/dL (1.3-4.6 ) 06/21/22 20:10 Prolactin 76.48 ng/mL (4.8- 23.3) H 06/22/22 08:01 Urine Color Yellow (Yellow) 06/03/22 09:43 Urine Appearance Clear (CLEAR) 06/03/22 09:43 Urine pH 6 (5-7) 06/03/22 09:43 Ur Specific Gravit y 1.020 (1.005-1.0 30) 06/03/22 09:43 Urine Protein Neg (Negative) 06/03/22 09:43 Urine Glucose (UA) Norm (Normal) 06/03/22 09:43 Urine Ketones Negative (Negati ve) 06/03/22 09:43 Urine Blood Neg (Negative) 06/03/22 09:43 Urine Nitrate Negative (Negati ve) 06/03/22 09:43 Urine Bilirubin Neg (Negative) 06/03/22 09:43 Urine Urobilinogen 1 mg/dL (Negative ) H 06/03/22 09:43 Ur Leukocyte Jennifer ase Negative (Negati ve) 06/03/22 09:43 Vitals: Last Vital Signs Temp 97.0 F L 07/04/22 06:00 Pulse 81 07/04/22 06:00 Resp 18 07/04/22 06:00 BP 96/68 07/04/22 06:00 Pulse Ox 97 07/04/22 06:00 O2 Del Method 07/03/22 14:00 O2 Flow Rate 98 07/02/22 07:45 Discharge Plan Discharge Patient Disposition: Home Condition: Stable Prescriptions: New aripiprazole 10 mg Tablet 10 mg PO DAILY 30 Days Qty: 30 1RF Invega Sustenna 156 mg/mL syringe 156 mg IM Q30D 30 Days Qty: 1 1RF Rx Instructions: Next injection 07/28/22 Discharge Orders: Discharge Order (Routine); Ordered 07/04/22 Ordered By: Db Hancock Referrals: [facility] [Other] [facility] [Outside] (You can try to do a walk in assessment and are on a list to call as soon as there are openings.) Nayeli Urias DO [Physician] - 07/13/22 10:30 am (Reassessment of hyperprolactinemia, left axilla pain, right lower quadrant discomfort, constipation, after acute psychosis.) Discharge Diet: Regular Discharge Activity: Resume usual activity Patient Instructions: Aripiprazole (By mouth), Paliperidone (By injection) (Invega Sustenna, Invega Markie, Invega..., Opioid Safety Discharge Attestations NPU Time Spent in Discharge Care*: less than 30 min Specific Discharge Activities: Specific discharge activities: educating patient, discussing with case maker/social workers/dc planners, documenting/other paperwork and evaluating patient/reviewing data Coding Level of Care Code Acute Chg FW DC note Diagnoses Psychosis F29 Tenderness of left axilla M79.622 Bilateral nipple discharge N64.52 Right lower quadrant abdominal tenderness R10.813
[2022-07-04 11:41] VITALS: BP 96/68; PULSE 81; RESP 18; TEMP 36.1; O2SAT 97
== END 2022-07-04 13:54 | disposition home or self-care (01) | DRG 885 ==
PROVIDERS: Internal Medicine; Admitting Provider Psychiatry & Neurology Psychiatry; Visit Provider Psychiatry & Neurology Psychiatry
DX: F20.9 Schizophrenia, unspecified (principal); E22.1 Hyperprolactinemia; Z91.14 Patient's other noncompliance with medication regimen; Z88.0 Allergy status to penicillin; R10.813 Right lower quadrant abdominal tenderness; M79.622 Pain in left upper arm; N64.52 Nipple discharge; K59.00 Constipation, unspecified; R25.1 Tremor, unspecified
CPT/HCPCS: 36415; 74176; 76882; 80053; 81003; 84146; 85025; 96372; 97165; J1200; J1630; J3486; Q0162